=== PATIENT | female | born 1950 | race Caucasian/White ===

== ENCOUNTER 2016-08-26 11:23 | Day surgery (SDC) | payer MEDICARE, OTHER ==
[~2016-08-26] VITALS: Ht 160 cm; Wt 74.9 kg
[2016-08-26 13:03] VITALS: Ht 160 cm; Wt 74.9 kg
[2016-08-26 13:07] VITALS: BP 122/60; PULSE 69; RESP 18
[2016-08-26] MEDS ORDERED: PROPOFOL 40 ML ONE (13:07)
[2016-08-26] MEDS ORDERED: LIDOCAINE 2% (SDV) 5 ML INJ ONE (13:10)
[2016-08-26] MEDS ORDERED: LEVOTHYROXINE (13:13)
[2016-08-26] MEDS ORDERED: LISINOPRIL (13:13)
[2016-08-26] MEDS ORDERED: METFORMIN (13:13)
[2016-08-26] MEDS ORDERED: NAPROXEN (13:13)
[2016-08-26 14:15] VITALS: BP 115/64; PULSE 68; RESP 22
--- NOTE | 2016-08-26 15:54 | GILP ---
DATE OF PROCEDURE: 08/26/2016 NAME OF PROCEDURES: 1. Esophagogastroduodenoscopy and biopsy. 2. Tattooing with Trudy ink. INDICATION FOR THE PROCEDURE: Mr. Solitario Zavaleta is a 66-year-old female patient who was note d to have a mass on the greater curvature of the stomach on abdominal CT scan. The patient was sche duled for endoscopy and possible biopsy. The procedure and possible complications are well explained to the patient and the patient understoo d and consented to the procedure. DESCRIPTION OF PROCEDURE: Under the influence of anesthesia, the gastroscope was carefully introduc ed into the esophagus and under direct vision, it was advanced to the stomach and through the pyloru s into the duodenal bulb and descending duodenum. FINDINGS: ESOPHAGUS: The mucosa was normal. STOMACH: The patient had a submucosal mass on the greater curvature and biopsies were taken for his topathology. The area was tattooed with Trudy ink. The patient was noted to have gastritis and gas tric mucosal biopsies were taken for H. pylori test. Duodenum was normal. The patient tolerated the procedure very well and there was no complication from the procedure. At the end of the procedure, she was awake with stable vital signs and she was discharged home to the [facility] of her family. IMPRESSION: 1. Hiatal hernia. 2. Gastroesophageal reflux disease. 3. Gastritis. 4. Gastric mucosal biopsies were taken for H. pylori test. 5. Submucosal mass on the greater curvature and biopsies were taken for histopathology. The area w as tattooed with Trudy ink. PLAN: 1. Omeprazole 40 mg p.o. q.a.m. 2. Await histopathology reports. 3. The patient may need endoscopic ultrasound for further evaluation. Dictated By: BRIANDA BOX/CRAL Conf#: [id number] DID#: [id number]
--- NOTE | 2016-08-26 19:21 | CONS ---
DATE OF ADMISSION: 08/26/2016 DATE OF CONSULTATION: TYPE OF CONSULTATION: Preoperative gastroenterology. Dear Dr. Rodriguez: I thank you very much for this kind referral. HISTORY OF PRESENT ILLNESS: Ms. Mary Garcia is a 66-year-old female patient who has been referred to me for further evaluation of a gastric mass, which was found on abdominal CT scan. The patient had a soft tissue mass extending from the greater curvature of the distal body of the stomac h. The patient denies any history of abdominal pain. There is no past history of peptic ulcer dise ase. She has been taking naproxen for arthritis. There is no history of gallstones. She does not have any fever, chills, or jaundice. There is no history of liver disease. The patient denies any change in the bowel habit or rectal bleeding. The patient states she had a colonoscopy 1 year ago a nd she was noted to have diverticulosis of the colon. No colon neoplasm was identified. She is hyp ertensive. She has diabetes. There is no history of heart disease or lung problem. There is no hi story of kidney disease. She has hypothyroidism. She is status post appendectomy. SOCIAL HISTORY: She is a nonsmoker. She does not abuse alcohol. FAMILY HISTORY: Negative for gastrointestinal tract neoplasm. ALLERGIES: SHE STATES SHE IS ALLERGIC TO TRAZODONE. MEDICATIONS: 1. Lisinopril. 2. Metformin. 3. Levothyroxine. 4. Naproxen. PHYSICAL EXAMINATION VITAL SIGNS: She is 5 feet 3 inches tall and she weighs 168 pounds. BMI 30. HEART: She has normal heart sounds. LUNGS: Clear. ABDOMEN: Soft without any distention. Liver and spleen are not palpable. There are no masses. Th ere is no focal tenderness. Normal bowel sounds are heard. CENTRAL NERVOUS SYSTEM: Does not reveal any focal neurological deficit. IMPRESSION: 1. Gastric mass on the greater curvature of the distal stomach on abdominal CT scan. 2. The patient had diverticulosis of the colon on colonoscopy done 1 year ago. 3. Hypertension. 4. Diabetes mellitus. 5. Hypothyroidism. 6. Arthritis. 7. Status post appendectomy. 8. Elevated body mass index. 9. HISTORY OF ALLERGY TO TRAZODONE. PLAN: 1. Upper endoscopy for further evaluation. 2. If upper endoscopy does not reveal any mass, patient will need endoscopic ultrasound and possibl e biopsy. The procedure and possible complications are well explained to the patient. She understands and con sents to the procedure. I thank you once again. With warmest personal regards, Dictated By: BRIANDA BOX/NTS Conf#: [id number] DID#: [id number] CC: BRIANDA GUTIERREZ MD;*EndCC*
== END 2016-08-26 15:45 | disposition home or self-care (01) ==
LOC: GIL 11:23
PROVIDERS: ATTEND Internal Medicine Gastroenterology
DX: K29.30 Chronic superficial gastritis without bleeding (principal); K44.9 Diaphragmatic hernia without obstruction or gangrene; K21.9 Gastro-esophageal reflux disease without esophagitis; I10 Essential (primary) hypertension; E11.9 Type 2 diabetes mellitus without complications; E78.5 Hyperlipidemia, unspecified
CPT/HCPCS: 82962; 87081; 88305; 88312

== ENCOUNTER 2017-01-17 08:50 | Inpatient (IN) | payer MEDICARE, OTHER ==
[2017-01-17] VITALS (24 sets, daily range): BP systolic 92–148; BP diastolic 52–77; PULSE 63–87; RESP 12–23; Ht 157.5 cm; Wt 80.0 kg
[~2017-01-17] VITALS: Ht 157.5 cm; Wt 80.0 kg
[~2017-01-17 08:50] MED LIST: AMPICILLIN/SULB 3 GM/NS (PMX) 100 ML IVPB SCH; LEVOTHYROXINE; LISINOPRIL; METFORMIN; NAPROXEN; SOD CHLORIDE 0.9% 1,000 ML IV SCH
[2017-01-17] MEDS ORDERED: LORA10TA3 PO (09:55)
[2017-01-17] MEDS ORDERED: OMEP20CA16 PO (09:56)
[2017-01-17] MEDS ORDERED: GLIP2.5T3 PO (09:56)
[2017-01-17] MEDS ORDERED: LEVO100T87 PO (09:56)
[2017-01-17] MEDS ORDERED: METF1000 PO (09:57)
[2017-01-17] MEDS ORDERED: LISI10TA2 PO (09:58)
[2017-01-17] MEDS ORDERED: ICOS1CAP PO (09:59)
[2017-01-17] MEDS ORDERED: NITR50CA38 PO (10:00)
[2017-01-17 10:31] LABS: ADD SCAN DIFF NO
[2017-01-17 10:34] LABS: BASOPHILS % 0.9 % (0.0-2.0); EOSINOPHILS # 0.1 10^3/ul (0.0-0.5); EOSINOPHILS % 2.8 % (0.0-7.0); LYMPHOCYTES # 1.7 10^3/ul (0.8-2.9); LYMPHOCYTES % 40.2 % (15.0-51.0); MEAN CORPUSCULAR HEMOGLOBIN 25.6 pg (29.0-33.0); MEAN CORPUSCULAR HGB CONC 31.3 g/dl (32.0-37.0); MEAN CORPUSCULAR VOLUME 81.8 fl (82.0-101.0); MEAN PLATELET VOLUME 9.9 fl (7.4-10.4); MONOCYTE # 0.4 10^3/ul (0.3-0.9); MONOCYTES % 8.3 % (0.0-11.0); NEUTROPHILS % 47.3 % (39.0-77.0); PLATELET COUNT 291 10^3/UL (140-415); RED BLOOD COUNT 3.91 10^6/ul (4.20-5.40); RED CELL DISTRIBUTION WIDTH 17.1 % (11.5-14.5); WHITE BLOOD COUNT 4.2 10^3/ul (4.8-10.8)
--- NOTE | 2017-01-17 10:39 | RADRPT ---
PROCEDURE: XR Chest 1 View. CLINICAL INDICATION: Abnormal breath sounds, preop. TECHNIQUE: AP view of the chest was obtained. COMPARISON: None. FINDINGS: The heart size is within normal limits. Calcified atherosclerosis is noted in the aorta. Mild eleva tion of the right hemidiaphragm is observed. Subsegmental atelectasis is noted in the left lower lo be. No consolidations are identified. No pneumothorax is seen. Osseous structures are intact. IMPRESSION: Calcified atherosclerosis in the aorta. Subsegmental atelectasis in the left lower lobe. Mild elevation of the right hemidiaphragm. RPTAT: AA .Dino Parra MD, Date Time Electronically viewed and signed by .Dino Parra MD, MD on 01/17/2017 10:38 .P/
[2017-01-17 10:56] LABS: INR 0.94; PARTIAL THROMBOPLASTIN TIME 25.3 Sec (25.0-35.0); PROTIME 12.6 Sec (12.2-14.2)
[2017-01-17 10:58] LABS: ALBUMIN 4.8 g/dl (3.3-4.9); ALBUMIN/GLOBULIN RATIO 1.6; BILIRUBIN,INDIRECT 0.3 mg/dl (0-1.1); BILIRUBIN,TOTAL 0.3 mg/dl (0.2-1.3); TOTAL PROTEIN 7.8 g/dl (6.1-8.1)
[2017-01-17 11:01] LABS: CALCIUM 9.4 mg/dl (8.4-10.2); CREATININE 0.45 mg/dl (0.44-1.00)
[2017-01-17] MEDS ORDERED: PROPOFOL 20 ML ONE (11:49)
[2017-01-17] MEDS ORDERED: FENTAnyl 50 MCG/ML VIAL ONE (11:49)
[2017-01-17] MEDS ORDERED: ROCURONIUM 50 MG INJ ONE (11:49)
[2017-01-17] MEDS ORDERED: MIDAZOLAM 1 MG/ML 2 ML INJ ONE (11:49)
[2017-01-17] MEDS ORDERED: ROPIVACAINE 0.5 % 30 ML VIAL ONE (11:50)
[2017-01-17] MEDS ORDERED: morphine SULFATE/PF (10 MG/10 ML) INJ ONE (12:36)
[2017-01-17] MEDS ORDERED: CEFAZOLIN 1 GM INJ ONE (12:41)
[2017-01-17] MEDS ORDERED: PHENYLephrine (100 MCG/ML) 5ML SYG ONE (12:41)
[2017-01-17] MEDS ORDERED: PIPER-TAZO 3.375 GM IV (PMX) 100 ML ONE (12:50)
[2017-01-17] MEDS ORDERED: FENTAnyl 2MCG/ML-ROPIV 0.2% 100 ML ONE (13:13)
[2017-01-17] MEDS ORDERED: METOCLOPRAMIDE 10 MG INJ ONE (13:14)
[2017-01-17] MEDS ORDERED: DEXAMETHASONE 4 MG/ML 1 ML INJ ONE (13:14)
[2017-01-17] MEDS ORDERED: FAMOTIDINE 20 MG INJ ONE (13:14)
[2017-01-17] MEDS ORDERED: ONDANSETRON 4 MG INJ ONE (13:14)
[2017-01-17] MEDS ORDERED: ONDANSETRON 4 MG INJ IV PRN (13:30)
[2017-01-17] MEDS ORDERED: HYDROmorphONE (0.2 MG/ML) 10ML SYG IV PRN ×2 (13:30)
[2017-01-17] MEDS ORDERED: ALBUMIN HUMAN 5% 250 ML IV PRN (13:30)
[2017-01-17] MEDS ORDERED: DIPHENHYDRAMINE 50 MG INJ IV PRN ×2 (13:30)
[2017-01-17] MEDS ORDERED: MEPERIDINE 25 MG INJ IV PRN (13:30)
[2017-01-17] MEDS ORDERED: NALBUPHINE HCL (10 MG/1 ML) INJ IV PRN (13:30)
[2017-01-17] MEDS ORDERED: LABETALOL HCL 20MG INJ IV PRN (13:30)
[2017-01-17] MEDS ORDERED: NALOXONE (0.4 MG/ML) INJ IV PRN (13:30)
[2017-01-17] MEDS ORDERED: EPHEDrine SULFATE 50 MG/5 ML SYG IV PRN (13:30)
[2017-01-17] MEDS ORDERED: METOCLOPRAMIDE 10 MG INJ IV PRN (13:30)
[2017-01-17] MEDS ORDERED: hydrALAzine 20 MG INJ IV PRN (13:30)
[2017-01-17] MEDS ORDERED: morphine (1 MG/ML) 10ML SYRINGE IV PRN ×3 (13:30)
[2017-01-17] MEDS ORDERED: GLYCOPYRROLATE 0.4 MG INJ ONE (13:32)
[2017-01-17] MEDS ORDERED: NEOSTIGMINE 3 MG/3 ML SYRINGE ONE (13:32)
--- NOTE | 2017-01-17 15:05 | OPR ---
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 POSTOPERATIVE DIAGNOSIS: Gastrointestinal stromal tumor arising from the greater curvature of the s tomach. OPERATION PERFORMED: Partial gastrectomy. ANESTHESIA: General. ANESTHESIOLOGIST: ____ SURGEON: Jeison Patricia MD STATISTICAL MACHINE SERVICER: Lázaro Moffett MD INDICATIONS FOR PROCEDURE: The patient is a 66-year-old female who was evaluated for abdominal pain , eventual diagnosis of gastric mass was made, endoscopic ultrasound was performed and utilized to o btain a fine-needle aspiration biopsy which was consistent with gastrointestinal stromal tumor. The patient was referred for surgical consultation and counseled as to the risks versus benefits of res ection with partial gastrectomy. She consented and was scheduled for surgery. DESCRIPTION OF PROCEDURE: The patient was brought to the operating theater, placed under general en dotracheal tube anesthesia. The abdomen was prepped and draped in the usual sterile fashion. An up per midline incision was made with a 15-blade scalpel from the xiphoid down to the umbilicus. Subcu taneous tissue was dissected with cautery down to the anterior rectus sheaths. The linea alba was i ncised, and the abdomen was entered without difficulty. The fascial incision was then incised throu gh the length of the skin incision. Exposure was obtained with retractors. The greater curvature o f the stomach was identified. The avascular plane between the greater omentum and transverse mesent sanaz was then entered, and portions of the omentum in the region of the palpable mass were transected with the LigaSure device. The greater curvature of the stomach was then elevated. The mass was id entified. Two Chaka clamps were placed on either side of the mass, and the CHESTER-75 stapler with gr een el was used to transect the region of the stomach where the mass was arising. The specimen was removed, oriented, and evaluated by attending pathologist, Dr. Bales who stated the margins ap peared to be grossly clear. The specimen was then sent for permanent pathologic analysis. The stap le line was inspected. Minimal residual bleeding was controlled with cautery, and portions of the o mentum were then tacked over the staple line and held in place with 3-0 silk pop off sutures. At th is point, the NG tube was palpated and found to be in good position. The lap, sponge and instrument count was correct, and the incision was then closed with #1 looped PDS sutures in running fashion. Subcutaneous tissue was irrigated with Betadine, and the skin was reapproximated with skin el. The patient tolerated the procedure well. The estimated blood loss was 40 mL. There were no comp lications, and the patient was transported in stable condition to the recovery room. Dictated By: JEISON AGUILAR/CARL Conf#: [id number] DID#: [id number]
[2017-01-17] MEDS: FENTAnyl 2MCG/ML-ROPIV 0.2% 100 ML BAG EPI SCH (15:32)
[2017-01-17] MEDS ORDERED: INSULIN ASPART [NOVOLOG] 3 ML PEN SC SCH (17:00)
[2017-01-17] MEDS ORDERED: GLUCOSE GEL 15 GRAM TUBE BUCCAL PRN (17:00)
[2017-01-17] MEDS ORDERED: GLUCOSE GEL 15 GRAM TUBE PO PRN ×2 (17:00)
[2017-01-17] MEDS ORDERED: DEXTROSE 50% 50 ML SYRINGE IV PRN ×2 (17:00)
[2017-01-17] MEDS ORDERED: GLUCAGON 1 MG INJ IM PRN (17:00)
[2017-01-17] MEDS: D5W-0.45 NACL + KCL 20 MEQ 1,000 ML IV SCH ×2 (17:31→20:14)
--- NOTE | 2017-01-17 17:58 | HP ---
DATE OF ADMISSION: 01/17/2017 HISTORY OF PRESENT ILLNESS: The patient is a 66-year-old female who was undergoing evaluation of ab dominal pain and was diagnosed with gastric mass. Subsequently, the patient had undergo fine needle aspiration biopsy which came back positive for gastrointestinal stromal tumor. The patient was suri luated by Dr. Patricia in general surgery consultation and was brought to the hospital and underwent pa rtial gastrectomy. Postoperative, the patient experienced moderate pain and was [facility] and management. PAST MEDICAL HISTORY: Positive for hypertension, diabetes, and hypothyroidism. PAST SURGICAL HISTORY: Patient is status post appendectomy many years ago. FAMILY HISTORY: Noncontributory. SOCIAL HISTORY: Patient lives at home. The patient denies any tobacco use, denies any alcohol use, denies any illicit drug use. ALLERGIES: PATIENT IS ALLERGIC TO TRAZODONE. HOME MEDICATIONS: Include: 1. Glipizide. 2. Levothyroxine. 3. Lisinopril. 4. Loratadine. 5. Metformin. 6. Nitrofurantoin. 7. Vascepa. 8. Omeprazole. REVIEW OF SYSTEMS: A 12-point review of systems is negative, unless what mentioned in the HPI. PHYSICAL ASSESSMENT: GENERAL: Well-developed, obese female, currently lethargic, but easily arousable. VITAL SIGNS: Temperature is 98.3, pulse is 63, blood pressure 119/64, respiratory rate 14, oxygen s aturation 96% on 2 liters nasal cannula. HEENT: Head is atraumatic, normocephalic. Pupils equal, round, react to light and accommodation. Oral mucosa is pink and moist. The patient has an NG tube with serosanguineous drainage. NECK: Supple. No cervical lymphadenopathy. No thyromegaly. CHEST: Lungs clear bilaterally. There are no rhonchi, wheezes, rales noted. CARDIOVASCULAR: Normal S1, S2. No murmurs, gallops, clicks, rubs noted. ABDOMEN: Status post surgery with midline surgical incision with intact dressing. EXTREMITIES: No edema, clubbing, or cyanosis. SKIN: There is no rash or petechiae noted. NEUROLOGIC: Patient is lethargic, but easily arousable. When awakened, patient is alert x3. No fo claudia deficits noted. Motor strength 5/5 in all extremities. LABORATORY DATA: On admission, CBC: White blood cells 4.2, hemoglobin 10.0, hematocrit 32.0, plate lets 291. Chemistry: Sodium is 140, potassium 4.0, chloride 103, carbon dioxide 28, anion gap 13, BUN is 26, creatinine 0.45, glucose 160, AST is 136, ALT is 202, alkaline phosphatase is 82. PT is 12.6, INR 0.924, APTT is 25.3. IMAGING: Chest x-ray with calcified atherosclerosis in the aorta, subsegmental atelectasis in left lower lobe, mild elevation of the right hemidiaphragm. ASSESSMENT AND PLAN: 1. 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 I will continue IV fluids. Continue n.p.o. NG tube to low intermittent wall silva ctioning. Continue antibiotics and Dilaudid p.r.n. for pain and Zofran p.r.n. for nausea. 2. Hypothyroidism. Will continue Synthroid, convert to IV dose. 3. Diabetes mellitus type 2. Will continue Accu-Cheks every 4 hours with NovoLog sliding scale cov erage. 4. Hypertension. We will continue to monitor blood pressure. Hydralazine p.r.n. for hypertension. Sequential compression devices for deep venous thrombosis prophylaxis. Further recommendations ba sed on clinical course. Plan of care discussed with Dr. Gomez. Dictated By: GIANNI HAMMER DIRECTOR STYLE for FIDEL GOMEZ MD SR/NTS Conf#: [id number] DID#: [id number]
[2017-01-17] MEDS: Insulin NOVOLOG SS MILD Algorithm (NPO/TPN/ENTERAL FEEDS) SC SCH ×2 (18:32→21:07)
[2017-01-18] MEDS: D5W-0.45 NACL + KCL 20 MEQ 1,000 ML IV SCH ×4 (00:28→21:41)
[2017-01-18 00:37] VITALS: BP 138/80; RESP 20
[2017-01-18] MEDS: Insulin NOVOLOG SS MILD Algorithm (NPO/TPN/ENTERAL FEEDS) SC SCH ×6 (00:40→22:01)
[2017-01-18] MEDS: FENTAnyl 2MCG/ML-ROPIV 0.2% 100 ML BAG EPI SCH (03:51)
[2017-01-18 04:00] VITALS: BP 130/60; PULSE 96; RESP 20
[2017-01-18] MEDS: PANTOPRAZOLE 40 MG INJ IV SCH (06:18)
[2017-01-18] MEDS: LEVOTHYROXINE 100 MCG VIAL IV SCH (06:19)
[2017-01-18 08:46] VITALS: BP 114/57; RESP 20
[2017-01-18 11:30] LABS: ADD SCAN DIFF NO
[2017-01-18 11:40] LABS: BASOPHILS % 0.3 % (0.0-2.0); HEMATOCRIT 26.7 % (37.0-47.0); HEMOGLOBIN 8.3 g/dl (12.0-16.0); LYMPHOCYTES # 1.9 10^3/ul (0.8-2.9); LYMPHOCYTES % 29.5 % (15.0-51.0); MEAN CORPUSCULAR HEMOGLOBIN 25.7 pg (29.0-33.0); MEAN CORPUSCULAR HGB CONC 31.1 g/dl (32.0-37.0); MEAN CORPUSCULAR VOLUME 82.7 fl (82.0-101.0); MEAN PLATELET VOLUME 9.7 fl (7.4-10.4); MONOCYTE # 0.5 10^3/ul (0.3-0.9); MONOCYTES % 7.5 % (0.0-11.0); NEUTROPHIL # 3.9 10^3/ul (1.6-7.5); NEUTROPHILS % 62.4 % (39.0-77.0); PLATELET COUNT 234 10^3/UL (140-415); RED BLOOD COUNT 3.23 10^6/ul (4.20-5.40); RED CELL DISTRIBUTION WIDTH 17.4 % (11.5-14.5); WHITE BLOOD COUNT 6.3 10^3/ul (4.8-10.8)
[2017-01-18 11:55] LABS: INR 1.11; PROTIME 14.3 Sec (12.2-14.2); PT RATIO 1.1
[2017-01-18 11:56] LABS: CREATININE 0.41 mg/dl (0.44-1.00); PARTIAL THROMBOPLASTIN TIME 26.2 Sec (25.0-35.0); POTASSIUM 3.8 mmol/L (3.5-5.1)
--- NOTE | 2017-01-18 15:59 | CONS ---
Date/Time of Note Date/Time of Note DATE: 01/18/17 TIME: 15:52 Consultation Date/Type/Reason Admit Date/Time Jan 17, 2017 at 09:15 Initial Consult Date 01/17/17 Type of Consultation: Anesthesia Reason for Consultation Subtotal Gastrectomy 24 HR Interval Summary Free Text/Dictation POD#! 66 yr old female, was scheduled for Subtotal Gastrectomy due to Gastric Cancer. She went under combined GETA-Thoracic Epidural Anesthesia for the surgery, surgery went uneventful, patient is doing well post-op, she is been complaining from soar throat due to the NG tube placement. Otherwise her pain is well controlled, she complains of mild surgical incision pain. no nausea or vomiting noted. Vital signs were stable afebrile, she is alert and oriented, able to move all extremities no paresthesia or weakness reported. Thoracic catheter site is clean and intact and epidural infusion is 6cc/h. Plan: Increased the Epidural infusion to 7cc/h and will follow up. Constitutional: no complaints Detailed Summary ENT: bleeding, congestion, discharge, dysphagia, no complaints, other, pain, sore throat Respiratory: no complaints Cardiovascular: no complaints Gastrointestinal: no complaints Genitourinary: no complaints Musculoskeletal: no complaints Skin: no complaints Neurologic: no complaints Endocrine: no complaints Lymphatic: no complaints Psychological: no complaints Immunologic: immunodeficiency Exam/Review of Systems Vital Signs Vitals Vital Signs Date Time Temp Pulse Resp B/P Pulse Ox O2 Delivery O2 Flow Rate FiO2 01/18/17 08:46 98.9 88 20 114/57 100 01/18/17 08:00 Nasal Cannula 3.0 Intake and Output 01/17/17 01/17/17 01/18/17 14:59 22:59 06:59 Intake Total 1500 ml 150 ml 1600 ml Output Total 350 ml 380 ml 1210 ml Balance 1150 ml -230 ml 390 ml Results Result Diagram: 01/18/17 1111 01/18/17 1111 Results 24 hrs Laboratory Tests Test 01/17/17 17:32 01/17/17 20:57 01/18/17 00:30 01/18/17 04:56 Bedside Glucose 208 267 H 257 H 233 H Test 01/18/17 09:06 01/18/17 11:11 01/18/17 13:03 Bedside Glucose 209 188 White Blood Count 6.3 # Red Blood Count 3.23 L Hemoglobin 8.3 L Hematocrit 26.7 L Mean Corpuscular Volume 82.7 Mean Corpuscular Hemoglobin 25.7 L Mean Corpuscular Hemoglobin Concent 31.1 L Red Cell Distribution Width 17.4 H Platelet Count 234 Mean Platelet Volume 9.7 Neutrophils % 62.4 Lymphocytes % 29.5 Monocytes % 7.5 Eosinophils % 0.0 Basophils % 0.3 Nucleated Red Blood Cells % 0.0 Neutrophils # 3.9 Lymphocytes # 1.9 Monocytes # 0.5 Eosinophils # 0.0 Basophils # 0.0 Nucleated Red Blood Cells # 0.0 Prothrombin Time 14.3 H Prothrombin Time Ratio 1.1 INR International Normalized Ratio 1.11 Activated Partial Thromboplast Time 26.2 Sodium Level 140 Potassium Level 3.8 Chloride Level 106 Carbon Dioxide Level 26 Anion Gap 12 Blood Urea Nitrogen 13 # Creatinine 0.41 L Glucose Level 167 Calcium Level 8.0 L Medications Medications Current Medications Diphenhydramine HCl (Benadryl) 25 mg Q4H PRN IV PRURITUS; Start 01/17/17 at 13: 30 Nalbuphine HCl (Nubain) 10 mg Q4H PRN IV PRURITUS; Start 01/17/17 at 13:30 Naloxone HCl (Narcan) 0.2 mg Q2M PRN IV FOR RESP RATE 8 OR LESS; Start at 13:30 Pantoprazole 40 mg 40 mg DAILY@06 IV Last administered on 01/18/17 06:18; Admin Dose 40 MG; Start 01/18/17 at 06:00 Potassium Chloride/Dextrose/ Sod Cl (D5-1/2ns + KCl 20 Meq) 1,000 ml @ 150 mls/ hr Q6H40M IV Last administered on 01/18/17 14:07; Admin Dose 150 MLS/HR; Start 01/17/17 at 13:34 Levothyroxine Sodium (Synthroid Iv) 50 mcg DAILY@06 IV Last administered on 06:19; Admin Dose 50 MCG; Start 01/18/17 at 06:00 Hydralazine HCl (Apresoline) 10 mg Q6H PRN IV SBP>170; Start 01/17/17 at 17:00 Insulin Aspart (Novolog Insulin Pen) (Adult SC Insulin - Mild Algorithm)... Q4 SC Last administered on 6/20/17at 13:23; Admin Dose 2 UNIT; Start 01/17/17 at 17:30 Miscellaneous Information 1 ea NOTE XX ; Start 01/17/17 at 17:00 Glucose (Glutose) 15 gm Q15M PRN PO DECREASED GLUCOSE; Start 01/17/17 at 17:00 Glucose (Glutose) 22.5 gm Q15M PRN PO DECREASED GLUCOSE; Start 01/17/17 at 17: 00 Dextrose (D50w Syringe) 25 ml Q15M PRN IV DECREASED GLUCOSE; Start 01/17/17 at 17:00 Dextrose (D50w Syringe) 50 ml Q15M PRN IV DECREASED GLUCOSE; Start 01/17/17 at 17:00 Glucagon (Glucagen) 1 mg Q15M PRN IM DECREASED GLUCOSE; Start 01/17/17 at 17:00 Glucose (Glutose) 15 gm Q15M PRN BUCCAL DECREASED GLUCOSE; Start 01/17/17 at 17 :00 JAKE HOLMAN MD Jan 18, 2017 15:59
[2017-01-18] MEDS ORDERED: ACETAMINOPHEN 1000MG/100ML IV 100 ML IVPB STA (17:05)
--- NOTE | 2017-01-18 17:13 | PN ---
Date/Time of Note Date/Time of Note DATE: 01/18/17 TIME: 17:09 Assessment/Plan VTE Prophylaxis VTE Prophylaxis Intervention: SCD's Lines/Catheters IV Catheter Type (from Nrs): Peripheral IV Urinary Cath still in place: Yes Reason Cath still needed: urinary retention Assessment/Plan Assessment/Plan Patient's complains of chills and fever, obtain chest x-ray and urine and blood cultures start patient on empiric Zosyn. Encourage use of incentive spirometer. ASSESSMENT AND PLAN: 1. 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 Continue IV fluids while patient is n.p.o. NG tube to low intermittent wall suctioning. Continue antibiotics and Dilaudid p.r.n. for pain and Zofran p.r.n. for nausea. 2. Hypothyroidism. Continue IV Synthroid. 3. Diabetes mellitus type 2. Continue Accu-Cheks every 4 hours with NovoLog sliding scale coverage. 4. Hypertension. Continue to monitor blood pressure. Hydralazine p.r.n. for hypertension. Sequential compression devices for deep venous thrombosis prophylaxis. Further recommendations based on clinical course. Plan of care discussed with Dr. Fonseca. Exam/Review of Systems Vital Signs Vitals Vital Signs Date Time Temp Pulse Resp B/P Pulse Ox O2 Delivery O2 Flow Rate FiO2 01/18/17 08:46 98.9 88 20 114/57 100 01/18/17 08:00 Nasal Cannula 3.0 Intake and Output 01/17/17 01/17/17 01/18/17 15:00 23:00 07:00 Intake Total 1500 ml 150 ml 1600 ml Output Total 350 ml 380 ml 1210 ml Balance 1150 ml -230 ml 390 ml Exam Constitutional: alert Head: normocephalic Neck: supple Respiratory: clear to auscultation Cardiovascular: nl pulses Gastrointestinal: other (Status post surgery), soft Extremities: normal pulses Neurological: nl mental status Results Result Diagram: 01/18/17 1111 01/18/17 1111 Results 24 hrs Laboratory Tests Test 01/17/17 17:32 01/17/17 20:57 01/18/17 00:30 01/18/17 04:56 Bedside Glucose 208 267 H 257 H 233 H Test 01/18/17 09:06 01/18/17 11:11 01/18/17 13:03 Bedside Glucose 209 188 White Blood Count 6.3 # Red Blood Count 3.23 L Hemoglobin 8.3 L Hematocrit 26.7 L Mean Corpuscular Volume 82.7 Mean Corpuscular Hemoglobin 25.7 L Mean Corpuscular Hemoglobin Concent 31.1 L Red Cell Distribution Width 17.4 H Platelet Count 234 Mean Platelet Volume 9.7 Neutrophils % 62.4 Lymphocytes % 29.5 Monocytes % 7.5 Eosinophils % 0.0 Basophils % 0.3 Nucleated Red Blood Cells % 0.0 Neutrophils # 3.9 Lymphocytes # 1.9 Monocytes # 0.5 Eosinophils # 0.0 Basophils # 0.0 Nucleated Red Blood Cells # 0.0 Prothrombin Time 14.3 H Prothrombin Time Ratio 1.1 INR International Normalized Ratio 1.11 Activated Partial Thromboplast Time 26.2 Sodium Level 140 Potassium Level 3.8 Chloride Level 106 Carbon Dioxide Level 26 Anion Gap 12 Blood Urea Nitrogen 13 # Creatinine 0.41 L Glucose Level 167 Calcium Level 8.0 L Medications Medications Current Medications Diphenhydramine HCl (Benadryl) 25 mg Q4H PRN IV PRURITUS; Start 01/17/17 at 13: 30 Nalbuphine HCl (Nubain) 10 mg Q4H PRN IV PRURITUS; Start 01/17/17 at 13:30 Naloxone HCl (Narcan) 0.2 mg Q2M PRN IV FOR RESP RATE 8 OR LESS; Start at 13:30 Pantoprazole 40 mg 40 mg DAILY@06 IV Last administered on 01/18/17 06:18; Admin Dose 40 MG; Start 01/18/17 at 06:00 Potassium Chloride/Dextrose/ Sod Cl (D5-1/2ns + KCl 20 Meq) 1,000 ml @ 150 mls/ hr Q6H40M IV Last administered on 01/18/17 14:07; Admin Dose 150 MLS/HR; Start 01/17/17 at 13:34 Levothyroxine Sodium (Synthroid Iv) 50 mcg DAILY@06 IV Last administered on 06:19; Admin Dose 50 MCG; Start 01/18/17 at 06:00 Hydralazine HCl (Apresoline) 10 mg Q6H PRN IV SBP>170; Start 01/17/17 at 17:00 Insulin Aspart (Novolog Insulin Pen) (Adult SC Insulin - Mild Algorithm)... Q4 SC Last administered on 01/18/17t 13:23; Admin Dose 2 UNIT; Start 01/17/17 at 17:30 Miscellaneous Information 1 ea NOTE XX ; Start 01/17/17 at 17:00 Glucose (Glutose) 15 gm Q15M PRN PO DECREASED GLUCOSE; Start 01/17/17 at 17:00 Glucose (Glutose) 22.5 gm Q15M PRN PO DECREASED GLUCOSE; Start 01/17/17 at 17: 00 Dextrose (D50w Syringe) 25 ml Q15M PRN IV DECREASED GLUCOSE; Start 01/17/17 at 17:00 Dextrose (D50w Syringe) 50 ml Q15M PRN IV DECREASED GLUCOSE; Start 01/17/17 at 17:00 Glucagon (Glucagen) 1 mg Q15M PRN IM DECREASED GLUCOSE; Start 01/17/17 at 17:00 Glucose (Glutose) 15 gm Q15M PRN BUCCAL DECREASED GLUCOSE; Start 01/17/17 at 17 :00 GIANNI HAMMER Jan 18, 2017 17:13
[2017-01-18] MEDS ORDERED: CEPASTAT LOZENGE MT PRN (18:00)
--- NOTE | 2017-01-18 18:09 | PN ---
DATE: 01/18/2017 Postop day #1 status post laparotomy and partial gastrectomy. SUBJECTIVE: The patient states that she is feeling thirsty, otherwise no complaint. OBJECTIVE: VITAL SIGNS: Temperature 98.9, heart rate 96 and 88, respiratory rate 20, blood pressure 114/57, sa turation 100% on 2 liters nasal cannula. Respiratory ____ little bit poor, encouraged to have incen tive spirometry. ABDOMEN: Soft. Dressing is intact. EXTREMITIES: Legs no calf tenderness. LABORATORY DATA: WBC today is 6300, hemoglobin slightly dropped from 10 to 8.3, hematocrit 26.7. C hemistry: Sodium, potassium normal. BUN 13, creatinine 0.41. Calcium 8. Blood sugar 188. ASSESSMENT: Status post partial gastrectomy, postop day #1. The patient overall is stable. Urine output is adequate. PLAN: Encouraged to use incentive spirometry more frequently. The patient also is receiving thorac ic epidural for pain management. We will follow. Dictated By: PERLITA VARNER/CARL Conf#: [id number] DID#: [id number]
[2017-01-18] MEDS: PIPER-TAZO 3.375 GM IV (PMX) 100 ML IVPB SCH ×2 (19:02→21:58)
[2017-01-18 19:40] VITALS: BP 140/74; RESP 21
[2017-01-18] MEDS ORDERED: NALOXONE (0.4 MG/ML) INJ IV PRN (21:00)
--- NOTE | 2017-01-19 00:31 | RADRPT ---
PROCEDURE: XR Chest. CLINICAL INDICATION: Fever. Postop. TECHNIQUE: Single AP portable chest COMPARISON: 01/18/2020 Chest x-ray FINDINGS: The cardiomediastinal silhouette is within normal limits of size. Atherosclerotic calcification of t he aorta. Vascular congestion and bilateral interstitial and alveolar air space opacities suggestive of pneumonia and/or CHF. Small pleural effusion. No pneumothorax. The osseous structures and soft tissues are unremarkable. IMPRESSION: 1. Interstitial and alveolar air space opacities and left pleural effusion with vascular congestion. This may represent CHF and/or multifocal pneumonia . RPTAT:AAJJ Jeannette Bolanos Physician Date Time Electronically viewed and signed by Physician Carmel on 01/19/2017 00:31 FRAN/
[2017-01-19] MEDS: Insulin NOVOLOG SS MILD Algorithm (NPO/TPN/ENTERAL FEEDS) SC SCH ×6 (01:33→21:37)
[2017-01-19] MEDS: ACETAMINOPHEN 650 MG SUPP PR PRN ×3 (02:11→16:49)
--- NOTE | 2017-01-19 05:22 | CONS ---
Date/Time of Note Date/Time of Note DATE: 01/19/17 TIME: 05:19 Consultation Date/Type/Reason Admit Date/Time Jan 17, 2017 at 09:15 Initial Consult Date 01/17/17 Type of Consultation: Anesthesia Reason for Consultation Subtotal Gastrectomy 24 HR Interval Summary Free Text/Dictation POD#2 66 yr old female, was scheduled for Subtotal Gastrectomy due to Gastric Cancer. She went under combined GETA-Thoracic Epidural Anesthesia for the surgery, surgery went uneventful, patient is doing well post-op,Epidural Duramorph was given Her soar throat is improved and is much better today. Otherwise her pain is well controlled, she complains of moderate surgical incision pain that was addressed last night and an epidural bolus of 6cc given and the infusion rate was increased to 8cc/hr. no nausea or vomiting noted. Vital signs were stable afebrile, she is alert and oriented, able to move all extremities no paresthesia or weakness reported. Thoracic catheter site is clean and intact and epidural infusion is 8cc/h. Plan: continue with rate 8cc/hr and morphine 2mg IV Q 2hr PRN for breakthrough pain, will follow up. Exam/Review of Systems Vital Signs Vitals Vital Signs Date Time Temp Pulse Resp B/P Pulse Ox O2 Delivery O2 Flow Rate FiO2 01/18/17 19:40 100.0 101 21 140/74 96 01/18/17 08:00 Nasal Cannula 3.0 Intake and Output 01/18/17 01/18/17 01/19/17 15:00 23:00 07:00 Intake Total 1250 ml 550 ml Output Total 1700 ml Balance 1250 ml -1150 ml Results Result Diagram: 01/18/17 1111 01/18/17 1111 Results 24 hrs Laboratory Tests Test 01/18/17 09:06 01/18/17 11:11 01/18/17 13:03 01/18/17 17:20 Bedside Glucose 209 188 133 White Blood Count 6.3 # Red Blood Count 3.23 L Hemoglobin 8.3 L Hematocrit 26.7 L Mean Corpuscular Volume 82.7 Mean Corpuscular Hemoglobin 25.7 L Mean Corpuscular Hemoglobin Concent 31.1 L Red Cell Distribution Width 17.4 H Platelet Count 234 Mean Platelet Volume 9.7 Neutrophils % 62.4 Lymphocytes % 29.5 Monocytes % 7.5 Eosinophils % 0.0 Basophils % 0.3 Nucleated Red Blood Cells % 0.0 Neutrophils # 3.9 Lymphocytes # 1.9 Monocytes # 0.5 Eosinophils # 0.0 Basophils # 0.0 Nucleated Red Blood Cells # 0.0 Prothrombin Time 14.3 H Prothrombin Time Ratio 1.1 INR International Normalized Ratio 1.11 Activated Partial Thromboplast Time 26.2 Sodium Level 140 Potassium Level 3.8 Chloride Level 106 Carbon Dioxide Level 26 Anion Gap 12 Blood Urea Nitrogen 13 # Creatinine 0.41 L Glucose Level 167 Calcium Level 8.0 L Test 01/18/17 21:47 01/19/17 01:29 Bedside Glucose 190 207 Medications Medications Current Medications Diphenhydramine HCl (Benadryl) 25 mg Q4H PRN IV PRURITUS; Start 01/17/17 at 13: 30 Nalbuphine HCl (Nubain) 10 mg Q4H PRN IV PRURITUS; Start 01/17/17 at 13:30 Pantoprazole 40 mg 40 mg DAILY@06 IV Last administered on 01/18/17 06:18; Admin Dose 40 MG; Start 01/18/17 at 06:00 Potassium Chloride/Dextrose/ Sod Cl (D5-1/2ns + KCl 20 Meq) 1,000 ml @ 150 mls/ hr Q6H40M IV Last administered on 01/18/17 21:41; Admin Dose 150 MLS/HR; Start 01/17/17 at 13:34 Levothyroxine Sodium (Synthroid Iv) 50 mcg DAILY@06 IV Last administered on 06:19; Admin Dose 50 MCG; Start 01/18/17 at 06:00 Hydralazine HCl (Apresoline) 10 mg Q6H PRN IV SBP>170; Start 01/17/17 at 17:00 Insulin Aspart (Novolog Insulin Pen) (Adult SC Insulin - Mild Algorithm)... Q4 SC Last administered on 01/19/17 01:33; Admin Dose 2 UNIT; Start 01/17/17 at 17:30 Miscellaneous Information 1 ea NOTE XX ; Start 01/17/17 at 17:00 Glucose (Glutose) 15 gm Q15M PRN PO DECREASED GLUCOSE; Start 01/17/17 at 17:00 Glucose (Glutose) 22.5 gm Q15M PRN PO DECREASED GLUCOSE; Start 01/17/17 at 17: 00 Dextrose (D50w Syringe) 25 ml Q15M PRN IV DECREASED GLUCOSE; Start 01/17/17 at 17:00 Dextrose (D50w Syringe) 50 ml Q15M PRN IV DECREASED GLUCOSE; Start 01/17/17 at 17:00 Glucagon (Glucagen) 1 mg Q15M PRN IM DECREASED GLUCOSE; Start 01/17/17 at 17:00 Glucose 15 gm 15 gm Q15M PRN BUCCAL DECREASED GLUCOSE; Start 01/17/17 at 17:00 Piperacillin Sod/ Tazobactam Sod (Zosyn 3.375gm/ 100 ml (Pmx)) 100 ml @ 200 mls /hr Q8 IVPB Last administered on 01/18/17 21:58; Admin Dose 200 MLS/HR; Start 01/18/17 at 17:30 Phenol (Cepastat Lozenge) 1 lozenge Q1H PRN [place] PAIN Last administered on 19:02; Admin Dose 1 LOZENGE; Start 01/18/17 at 18:00 Morphine Sulfate (morphine) 2 mg Q2H PRN IV PAIN LEVEL 1-5; Start 01/18/17 at 21:00 Naloxone HCl (Narcan) 0.2 mg Q2M PRN IV FOR RESP RATE 8 OR LESS; Start at 21:00 Acetaminophen (Tylenol Supp) 650 mg Q4H PRN [place] ELEVATED TEMPERATURE Last administered on 01/19/17 02:11; Admin Dose 650 MG; Start 01/19/17 at 02:00 JAKE HOLMAN MD Jan 19, 2017 05:22
[2017-01-19] MEDS: LEVOTHYROXINE 100 MCG VIAL IV SCH (05:33)
[2017-01-19] MEDS: PANTOPRAZOLE 40 MG INJ IV SCH (05:33)
[2017-01-19] MEDS: PIPER-TAZO 3.375 GM IV (PMX) 100 ML IVPB SCH ×3 (05:33→21:35)
[2017-01-19] MEDS: D5W-0.45 NACL + KCL 20 MEQ 1,000 ML IV SCH ×3 (05:33→22:43)
[2017-01-19] MEDS: morphine 2 MG INJ IV PRN ×2 (05:39→19:56)
[2017-01-19] MEDS: FENTAnyl 2MCG/ML-ROPIV 0.2% 100 ML BAG EPI SCH ×2 (06:55→16:35)
[2017-01-19 07:47] VITALS: BP 128/69; RESP 20
[2017-01-19 10:33] LABS: ADD SCAN DIFF NO
[2017-01-19 10:39] LABS: BASOPHILS % 0.4 % (0.0-2.0); EOSINOPHILS % 0.1 % (0.0-7.0); HEMATOCRIT 27.5 % (37.0-47.0); HEMOGLOBIN 8.7 g/dl (12.0-16.0); LYMPHOCYTES # 2.1 10^3/ul (0.8-2.9); LYMPHOCYTES % 29.9 % (15.0-51.0); MEAN CORPUSCULAR HGB CONC 31.6 g/dl (32.0-37.0); MEAN CORPUSCULAR VOLUME 82.1 fl (82.0-101.0); MEAN PLATELET VOLUME 10.1 fl (7.4-10.4); MONOCYTE # 0.5 10^3/ul (0.3-0.9); MONOCYTES % 6.9 % (0.0-11.0); NEUTROPHIL # 4.3 10^3/ul (1.6-7.5); NEUTROPHILS % 62.4 % (39.0-77.0); PLATELET COUNT 250 10^3/UL (140-415); RED BLOOD COUNT 3.35 10^6/ul (4.20-5.40); RED CELL DISTRIBUTION WIDTH 17.5 % (11.5-14.5); WHITE BLOOD COUNT 6.9 10^3/ul (4.8-10.8)
[2017-01-19 11:07] LABS: INR 1.06; PROTIME 13.8 Sec (12.2-14.2); PT RATIO 1.1
[2017-01-19 11:08] LABS: CALCIUM 8.2 mg/dl (8.4-10.2); CREATININE 0.41 mg/dl (0.44-1.00); PARTIAL THROMBOPLASTIN TIME 28.1 Sec (25.0-35.0); POTASSIUM 3.8 mmol/L (3.5-5.1)
--- NOTE | 2017-01-19 13:29 | PN ---
DATE: 01/19/2017 Postop day #2 status post laparotomy, partial gastrectomy. SUBJECTIVE: No special complaint, stated that she is better. OBJECTIVE: VITAL SIGNS: Temperature 98.9 today, apparently per nurses last night it was 102. Heart rate 92 and regular, respirations 20, blood pressure 128/69, saturation 100% on 3 liters nasal cannula. LABORATORY DATA: WBC 6900 with 62% segmented, hemoglobin 8.7, hematocrit 27.5. Chemistry: Sodium, potassium normal, BUN and creatinine normal. Blood sugar 186. Urine culture so far is negative. Chest x-ray was done last night, shows interstitial and alveolar airspace opacities and left pleural effusion with vascular congestion. This may represent congestive heart failure and/or multifocal pneumonia. ABDOMEN: Soft, bowel sounds present. NG tube is in place, is not draining that much. Urine output is adequate. ASSESSMENT AND PLAN: The patient is a 66-year-old with status post laparotomy, partial gastrectomy, postop day #2. She started having high fever yesterday. The chest x-ray shows abnormal chest, possible opacification of interstitial spaces. PLAN: Encourage the patient to use incentive spirometry and take deep breaths and cough every half an hour. Other colleagues will continue to manage the patient in regards to other problems. Hopefully, tomorrow we may be able to get her out of bed because the patient has thoracic epidural. Dictated By: PERLITA VARNER/CARL Conf#: [id number] DID#: [id number] MTDD
--- NOTE | 2017-01-19 14:30 | PN ---
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 Continue IV fluids while patient is n.p.o. NG tube to low intermittent wall suctioning. Continue antibiotics and Dilaudid p.r.n. for pain and Zofran p.r.n. for nausea. - Postoperative fever, continue Zosyn follow-up on urine and blood cultures. Chest x-ray was pleural effusion and vascular congestion. Encourage IS. - Hypothyroidism. Continue IV Synthroid. - Diabetes mellitus type 2. Continue Accu-Cheks every 4 hours with NovoLog sliding scale coverage. - Hypertension. Continue to monitor blood pressure. Hydralazine p.r.n. for hypertension. Sequential compression devices for deep venous thrombosis prophylaxis. Further recommendations based on clinical course. Plan of care discussed with Dr. Fonseca. Problems: Exam/Review of Systems Vital Signs Vitals Vital Signs Date Time Temp Pulse Resp B/P Pulse Ox O2 Delivery O2 Flow Rate FiO2 01/19/17 08:00 Nasal Cannula 3.0 01/19/17 07:47 98.9 92 20 128/69 100 Intake and Output 01/18/17 01/18/17 01/19/17 15:00 23:00 07:00 Intake Total 1250 ml 1330 ml 1020 ml Output Total 1700 ml 1260 ml Balance 1250 ml -370 ml -240 ml Exam Constitutional: alert Head: normocephalic Neck: supple Respiratory: clear to auscultation Cardiovascular: nl pulses Gastrointestinal: other (Status post surgery), soft Extremities: normal pulses Neurological: nl mental status Results Result Diagram: 01/19/17 1018 01/19/17 1018 Results 24 hrs Laboratory Tests Test 01/18/17 17:20 01/18/17 21:47 01/19/17 01:29 01/19/17 05:54 Bedside Glucose 133 190 207 173 Test 01/19/17 09:06 01/19/17 10:18 01/19/17 13:08 Bedside Glucose 172 227 H White Blood Count 6.9 Red Blood Count 3.35 L Hemoglobin 8.7 L Hematocrit 27.5 L Mean Corpuscular Volume 82.1 Mean Corpuscular Hemoglobin 26.0 L Mean Corpuscular Hemoglobin Concent 31.6 L Red Cell Distribution Width 17.5 H Platelet Count 250 Mean Platelet Volume 10.1 Neutrophils % 62.4 Lymphocytes % 29.9 Monocytes % 6.9 Eosinophils % 0.1 Basophils % 0.4 Nucleated Red Blood Cells % 0.0 Neutrophils # 4.3 Lymphocytes # 2.1 Monocytes # 0.5 Eosinophils # 0.0 Basophils # 0.0 Nucleated Red Blood Cells # 0.0 Prothrombin Time 13.8 Prothrombin Time Ratio 1.1 INR International Normalized Ratio 1.06 Activated Partial Thromboplast Time 28.1 Sodium Level 139 Potassium Level 3.8 Chloride Level 107 Carbon Dioxide Level 28 Anion Gap 8 Blood Urea Nitrogen 6 L Creatinine 0.41 L Glucose Level 186 Calcium Level 8.2 L Medications Medications Current Medications Diphenhydramine HCl (Benadryl) 25 mg Q4H PRN IV PRURITUS; Start 01/17/17 at 13: 30 Nalbuphine HCl (Nubain) 10 mg Q4H PRN IV PRURITUS; Start 01/17/17 at 13:30 Pantoprazole 40 mg 40 mg DAILY@06 IV Last administered on 01/19/17 05:33; Admin Dose 40 MG; Start 01/18/17 at 06:00 Potassium Chloride/Dextrose/ Sod Cl (D5-1/2ns + KCl 20 Meq) 1,000 ml @ 150 mls/ hr Q6H40M IV Last administered on 01/19/17 13:03; Admin Dose 150 MLS/HR; Start 01/17/17 at 13:34 Levothyroxine Sodium (Synthroid Iv) 50 mcg DAILY@06 IV Last administered on 05:33; Admin Dose 50 MCG; Start 01/18/17 at 06:00 Hydralazine HCl (Apresoline) 10 mg Q6H PRN IV SBP>170; Start 01/17/17 at 17:00 Insulin Aspart (Novolog Insulin Pen) (Adult SC Insulin - Mild Algorithm)... Q4 SC Last administered on 01/19/17 13:13; Admin Dose 3 UNIT; Start 01/17/17 at 17:30 Miscellaneous Information 1 ea NOTE XX ; Start 01/17/17 at 17:00 Glucose (Glutose) 15 gm Q15M PRN PO DECREASED GLUCOSE; Start 01/17/17 at 17:00 Glucose (Glutose) 22.5 gm Q15M PRN PO DECREASED GLUCOSE; Start 01/17/17 at 17: 00 Dextrose (D50w Syringe) 25 ml Q15M PRN IV DECREASED GLUCOSE; Start 01/17/17 at 17:00 Dextrose (D50w Syringe) 50 ml Q15M PRN IV DECREASED GLUCOSE; Start 01/17/17 at 17:00 Glucagon (Glucagen) 1 mg Q15M PRN IM DECREASED GLUCOSE; Start 01/17/17 at 17:00 Glucose 15 gm 15 gm Q15M PRN BUCCAL DECREASED GLUCOSE; Start 01/17/17 at 17:00 Piperacillin Sod/ Tazobactam Sod (Zosyn 3.375gm/ 100 ml (Pmx)) 100 ml @ 200 mls /hr Q8 IVPB Last administered on 01/19/17 14:04; Admin Dose 200 MLS/HR; Start 01/18/17 at 17:30 Phenol (Cepastat Lozenge) 1 lozenge Q1H PRN [place] PAIN Last administered on 19:02; Admin Dose 1 LOZENGE; Start 01/18/17 at 18:00 Morphine Sulfate (morphine) 2 mg Q2H PRN IV PAIN LEVEL 1-5 Last administered on 01/19/17 05:39; Admin Dose 2 MG; Start 01/18/17 at 21:00 Naloxone HCl (Narcan) 0.2 mg Q2M PRN IV FOR RESP RATE 8 OR LESS; Start at 21:00 Acetaminophen (Tylenol Supp) 650 mg Q4H PRN [place] ELEVATED TEMPERATURE Last administered on 01/19/17 07:05; Admin Dose 650 MG; Start 01/19/17 at 02:00 GIANNI HAMMER Jan 19, 2017 14:30
[2017-01-19] MEDS ORDERED: FUROSEMIDE 20 MG INJ IM ONE (15:00)
[2017-01-19] MEDS ORDERED: FUROSEMIDE 20 MG INJ IV ONE (17:00)
[2017-01-19 19:22] VITALS: BP 189/82; RESP 18
[2017-01-20] MEDS: Insulin NOVOLOG SS MILD Algorithm (NPO/TPN/ENTERAL FEEDS) SC SCH ×6 (01:16→21:00)
[2017-01-20] MEDS: FENTAnyl 2MCG/ML-ROPIV 0.2% 100 ML BAG EPI SCH ×2 (02:47→13:36)
[2017-01-20] MEDS: LEVOTHYROXINE 100 MCG VIAL IV SCH (05:39)
[2017-01-20] MEDS: PANTOPRAZOLE 40 MG INJ IV SCH (05:39)
[2017-01-20] MEDS: PIPER-TAZO 3.375 GM IV (PMX) 100 ML IVPB SCH ×3 (05:43→21:31)
[2017-01-20 05:55] LABS: ADD SCAN DIFF NO
[2017-01-20 06:20] LABS: BASOPHILS % 0.6 % (0.0-2.0); EOSINOPHILS # 0.1 10^3/ul (0.0-0.5); EOSINOPHILS % 1.4 % (0.0-7.0); HEMATOCRIT 29.4 % (37.0-47.0); HEMOGLOBIN 8.9 g/dl (12.0-16.0); LYMPHOCYTES % 31.9 % (15.0-51.0); MEAN CORPUSCULAR HEMOGLOBIN 24.9 pg (29.0-33.0); MEAN CORPUSCULAR HGB CONC 30.3 g/dl (32.0-37.0); MEAN CORPUSCULAR VOLUME 82.4 fl (82.0-101.0); MEAN PLATELET VOLUME 10.6 fl (7.4-10.4); MONOCYTE # 0.5 10^3/ul (0.3-0.9); MONOCYTES % 7.7 % (0.0-11.0); NEUTROPHIL # 3.7 10^3/ul (1.6-7.5); NEUTROPHILS % 57.9 % (39.0-77.0); PLATELET COUNT 254 10^3/UL (140-415); RED BLOOD COUNT 3.57 10^6/ul (4.20-5.40); RED CELL DISTRIBUTION WIDTH 17.8 % (11.5-14.5); WHITE BLOOD COUNT 6.4 10^3/ul (4.8-10.8)
[2017-01-20 06:33] LABS: INR 0.97; PROTIME 12.9 Sec (12.2-14.2)
[2017-01-20 06:34] LABS: PARTIAL THROMBOPLASTIN TIME 29.4 Sec (25.0-35.0)
[2017-01-20 06:37] LABS: CALCIUM 8.7 mg/dl (8.4-10.2); CREATININE 0.49 mg/dl (0.44-1.00); POTASSIUM 3.8 mmol/L (3.5-5.1)
[2017-01-20 08:00] VITALS: BP 160/76; RESP 20
[2017-01-20] MEDS: morphine 2 MG INJ IV PRN ×3 (09:22→21:33)
[2017-01-20] MEDS: hydrALAzine 20 MG INJ IV PRN (09:22)
[2017-01-20 10:07] LABS: ADD SCAN DIFF NO
[2017-01-20 10:08] LABS: BASOPHILS % 0.5 % (0.0-2.0); EOSINOPHILS # 0.1 10^3/ul (0.0-0.5); EOSINOPHILS % 1.3 % (0.0-7.0); HEMATOCRIT 29.7 % (37.0-47.0); HEMOGLOBIN 8.9 g/dl (12.0-16.0); LYMPHOCYTES # 1.9 10^3/ul (0.8-2.9); LYMPHOCYTES % 30.3 % (15.0-51.0); MEAN CORPUSCULAR HEMOGLOBIN 24.5 pg (29.0-33.0); MEAN CORPUSCULAR VOLUME 81.8 fl (82.0-101.0); MEAN PLATELET VOLUME 9.9 fl (7.4-10.4); MONOCYTE # 0.5 10^3/ul (0.3-0.9); MONOCYTES % 7.1 % (0.0-11.0); NEUTROPHIL # 3.8 10^3/ul (1.6-7.5); NEUTROPHILS % 60.5 % (39.0-77.0); PLATELET COUNT 243 10^3/UL (140-415); RED BLOOD COUNT 3.63 10^6/ul (4.20-5.40); RED CELL DISTRIBUTION WIDTH 17.3 % (11.5-14.5); WHITE BLOOD COUNT 6.3 10^3/ul (4.8-10.8)
[2017-01-20 10:30] LABS: CALCIUM 8.5 mg/dl (8.4-10.2); CREATININE 0.43 mg/dl (0.44-1.00); POTASSIUM 3.8 mmol/L (3.5-5.1)
[2017-01-20] MEDS: ACETAMINOPHEN 650 MG SUPP PR PRN ×2 (12:31→23:01)
[2017-01-20] MEDS: D5W-0.45 NACL + KCL 20 MEQ 1,000 ML IV SCH ×2 (12:40→23:43)
[2017-01-20 12:42] VITALS: BP 148/70; PULSE 89; RESP 18
--- NOTE | 2017-01-20 17:05 | PN ---
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 Continue IV fluids while patient is n.p.o. NG tube to low intermittent wall suctioning. Continue antibiotics and Dilaudid p.r.n. for pain and Zofran p.r.n. for nausea. - Postoperative fever, continue Zosyn follow-up on urine and blood cultures. Chest x-ray was pleural effusion and vascular congestion. Encourage IS. - Hypothyroidism. Continue IV Synthroid. - Diabetes mellitus type 2. Continue Accu-Cheks every 4 hours with NovoLog sliding scale coverage. - Hypertension. Continue to monitor blood pressure. Hydralazine p.r.n. for hypertension. Sequential compression devices for deep venous thrombosis prophylaxis. Further recommendations based on clinical course. Plan of care discussed with Dr. Fonseca. Subjective 24 Hr Interval Summary Free Text/Dictation alert, Febrile, EPIDURAL intact, NGT connected to LIS, FC intact, dw staff- worked with PT,limited mobility, no BM yet, family at bed side- all qs answered. Constitutional: febrile, requiring IVF, requiring O2 Respiratory: no complaints Cardiovascular: no complaints Gastrointestinal: no complaints Genitourinary: no complaints Skin: other Exam/Review of Systems Vital Signs Vitals Vital Signs Date Time Temp Pulse Resp B/P Pulse Ox O2 Delivery O2 Flow Rate FiO2 01/20/17 14:04 99.4 01/20/17 12:51 2.0 01/20/17 12:42 89 18 148/70 99 Nasal Cannula Intake and Output 01/19/17 01/19/17 01/20/17 15:00 23:00 07:00 Intake Total 1100 ml 1100 ml 620 ml Output Total 3450 ml Balance 1100 ml 1100 ml -2830 ml Exam Constitutional: alert, oriented, well developed Respiratory: diminished breath sounds Cardiovascular: nl pulses, regular rate and rhythm Gastrointestinal: other (ngt connected to low intermittent suction, hpoactive BS), soft Musculoskeletal: nl extremities to inspection Extremities: normal pulses Skin: other Results Result Diagram: 01/20/17 0945 01/20/17 0945 Results 24 hrs Laboratory Tests Test 01/19/17 17:06 01/19/17 21:34 01/20/17 01:10 01/20/17 04:43 Bedside Glucose 188 165 151 White Blood Count 6.4 Red Blood Count 3.57 L Hemoglobin 8.9 L Hematocrit 29.4 L Mean Corpuscular Volume 82.4 Mean Corpuscular Hemoglobin 24.9 L Mean Corpuscular Hemoglobin Concent 30.3 L Red Cell Distribution Width 17.8 H Platelet Count 254 Mean Platelet Volume 10.6 H Neutrophils % 57.9 Lymphocytes % 31.9 Monocytes % 7.7 Eosinophils % 1.4 Basophils % 0.6 Nucleated Red Blood Cells % 0.0 Neutrophils # 3.7 Lymphocytes # 2.0 Monocytes # 0.5 Eosinophils # 0.1 Basophils # 0.0 Nucleated Red Blood Cells # 0.0 Prothrombin Time 12.9 Prothrombin Time Ratio 1.0 INR International Normalized Ratio 0.97 Activated Partial Thromboplast Time 29.4 Sodium Level 139 Potassium Level 3.8 Chloride Level 103 Carbon Dioxide Level 31 Anion Gap 9 Blood Urea Nitrogen 6 L Creatinine 0.49 Glucose Level 163 Calcium Level 8.7 Test 01/20/17 05:47 01/20/17 09:27 01/20/17 09:45 01/20/17 12:34 Bedside Glucose 180 161 164 White Blood Count 6.3 Red Blood Count 3.63 L Hemoglobin 8.9 L Hematocrit 29.7 L Mean Corpuscular Volume 81.8 L Mean Corpuscular Hemoglobin 24.5 L Mean Corpuscular Hemoglobin Concent 30.0 L Red Cell Distribution Width 17.3 H Platelet Count 243 Mean Platelet Volume 9.9 Neutrophils % 60.5 Lymphocytes % 30.3 Monocytes % 7.1 Eosinophils % 1.3 Basophils % 0.5 Nucleated Red Blood Cells % 0.0 Neutrophils # 3.8 Lymphocytes # 1.9 Monocytes # 0.5 Eosinophils # 0.1 Basophils # 0.0 Nucleated Red Blood Cells # 0.0 Sodium Level 137 Potassium Level 3.8 Chloride Level 103 Carbon Dioxide Level 29 Anion Gap 9 Blood Urea Nitrogen 7 Creatinine 0.43 L Glucose Level 176 Calcium Level 8.5 Medications Medications Current Medications Diphenhydramine HCl (Benadryl) 25 mg Q4H PRN IV PRURITUS; Start 01/17/17 at 13: 30 Nalbuphine HCl (Nubain) 10 mg Q4H PRN IV PRURITUS; Start 01/17/17 at 13:30 Pantoprazole 40 mg 40 mg DAILY@06 IV Last administered on 01/20/17 05:39; Admin Dose 40 MG; Start 01/18/17 at 06:00 Potassium Chloride/Dextrose/ Sod Cl (D5-1/2ns + KCl 20 Meq) 1,000 ml @ 80 mls/ hr [id number] IV Last administered on 01/20/17 12:40; Admin Dose 80 MLS/HR; Start 01/17/17 at 13:34 Levothyroxine Sodium (Synthroid Iv) 50 mcg DAILY@06 IV Last administered on 05:39; Admin Dose 50 MCG; Start 01/18/17 at 06:00 Hydralazine HCl (Apresoline) 10 mg Q6H PRN IV SBP>170 Last administered on 01/20 09:22; Admin Dose 10 MG; Start 01/17/17 at 17:00 Insulin Aspart (Novolog Insulin Pen) (Adult SC Insulin - Mild Algorithm)... Q4 SC Last administered on 01/20/17 12:38; Admin Dose 1 UNIT; Start 01/17/17 at 17:30 Miscellaneous Information 1 ea NOTE XX ; Start 01/17/17 at 17:00 Glucose (Glutose) 15 gm Q15M PRN PO DECREASED GLUCOSE; Start 01/17/17 at 17:00 Glucose (Glutose) 22.5 gm Q15M PRN PO DECREASED GLUCOSE; Start 01/17/17 at 17: 00 Dextrose (D50w Syringe) 25 ml Q15M PRN IV DECREASED GLUCOSE; Start 01/17/17 at 17:00 Dextrose (D50w Syringe) 50 ml Q15M PRN IV DECREASED GLUCOSE; Start 01/17/17 at 17:00 Glucagon (Glucagen) 1 mg Q15M PRN IM DECREASED GLUCOSE; Start 01/17/17 at 17:00 Glucose 15 gm 15 gm Q15M PRN BUCCAL DECREASED GLUCOSE; Start 01/17/17 at 17:00 Piperacillin Sod/ Tazobactam Sod (Zosyn 3.375gm/ 100 ml (Pmx)) 100 ml @ 200 mls /hr Q8 IVPB Last administered on 6/22/17at 13:32; Admin Dose 200 MLS/HR; Start 01/18/17 at 17:30 Phenol (Cepastat Lozenge) 1 lozenge Q1H PRN [place] PAIN Last administered on 19:02; Admin Dose 1 LOZENGE; Start 01/18/17 at 18:00 Morphine Sulfate (morphine) 2 mg Q2H PRN IV PAIN LEVEL 1-5 Last administered on 01/20/17 14:54; Admin Dose 2 MG; Start 01/18/17 at 21:00 Naloxone HCl (Narcan) 0.2 mg Q2M PRN IV FOR RESP RATE 8 OR LESS; Start at 21:00 Acetaminophen (Tylenol Supp) 650 mg Q4H PRN [place] ELEVATED TEMPERATURE Last administered on 01/20/17 12:31; Admin Dose 650 MG; Start 01/19/17 at 02:00 SOFY ALEXANDER Jan 20, 2017 17:02
[2017-01-20 17:48] VITALS: BP 157/73; PULSE 75; RESP 16
--- NOTE | 2017-01-20 17:51 | PN ---
DATE: 01/20/2017 Postop day 3, status post laparotomy, partial gastrectomy. SUBJECTIVE: Would like to have some food or drink some water. Otherwise, no specific problem. Dante arently per instruction of the anesthesiologist, they locked the epidural and after a couple of hour s tried to get her out of bed to walk, but she could not walk. As mentioned, she is awake, she is oriented, laying down in the bed. OBJECTIVE: VITAL SIGNS: Temperature fluctuating between 109 and 108. Heart rate fluctuating between 89 and 76 , respiration 18, blood pressure 148/70, saturation 99% on 2 liters nasal cannula. LABORATORY DATA: WBC 6300 with 60% neutrophils normal. Hemoglobin 10.7. Chemistry: Sodium and po tassium normal. BUN and creatinine normal. ABDOMEN: Soft. EXTREMITIES: Legs no calf tenderness. ASSESSMENT AND PLAN: The patient is a 66-year-old with gastric tumor, status post laparoscopic part ial gastrectomy. The only problem is that the patient has running fever since 48 hours ago. Cultur es have been sent, no report yet. The chest x-ray 2 days ago showed some possible infiltration all around versus congestive heart failure. The patient does not have leukocytosis. The patient has no t had any bowel movement yet. NG tube is draining greenish bile in the past 24 hours. After 6:00 a .m., she has drained 50 mL but since this morning has drained about 250 mL. PLAN: Continue current care. Repeat chest x-ray. Dictated By: PERLITA VARNER/CARL Conf#: [id number] DID#: [id number]
--- NOTE | 2017-01-20 19:56 | CONS ---
Date/Time of Note Date/Time of Note DATE: 01/20/17 TIME: 19:49 Consultation Date/Type/Reason Admit Date/Time Jan 17, 2017 at 09:15 Initial Consult Date 01/17/17 Type of Consultation: Anesthesia Reason for Consultation Subtotal Gastrectomy 24 HR Interval Summary Free Text/Dictation POD#3 66 yr old female, was scheduled for Subtotal Gastrectomy due to Gastric Cancer. She went under combined GETA-Thoracic Epidural Anesthesia for the surgery, surgery went uneventful, patient is doing well post-op,Epidural Duramorph was given Her soar throat is improved and is much better today and completely resolved, NG Tube in place. Otherwise her pain is well controlled, Her incisional pain ia much improved since yesterday, the Epidural infusion rate is 8cc/hr. no nausea or vomiting noted. Vital signs were stable afebrile, she is alert and oriented, able to move all extremities no paresthesia or weakness reported. Thoracic catheter site is clean and intact. Plan: continue with rate 8cc/hr and morphine 2mg IV Q 2hr PRN for breakthrough pain, Patient will be ambulated today, continue her chest PT, will follow up. Exam/Review of Systems Vital Signs Vitals Vital Signs Date Time Temp Pulse Resp B/P Pulse Ox O2 Delivery O2 Flow Rate FiO2 01/20/17 17:48 99.5 75 16 157/73 95 Nasal Cannula 2.0 Intake and Output 01/19/17 01/19/17 01/20/17 15:00 23:00 07:00 Intake Total 1100 ml 1100 ml 620 ml Output Total 3450 ml Balance 1100 ml 1100 ml -2830 ml Results Result Diagram: 01/20/17 0945 01/20/17 0945 Results 24 hrs Laboratory Tests Test 01/19/17 21:34 01/20/17 01:10 01/20/17 04:43 01/20/17 05:47 Bedside Glucose 165 151 180 White Blood Count 6.4 Red Blood Count 3.57 L Hemoglobin 8.9 L Hematocrit 29.4 L Mean Corpuscular Volume 82.4 Mean Corpuscular Hemoglobin 24.9 L Mean Corpuscular Hemoglobin Concent 30.3 L Red Cell Distribution Width 17.8 H Platelet Count 254 Mean Platelet Volume 10.6 H Neutrophils % 57.9 Lymphocytes % 31.9 Monocytes % 7.7 Eosinophils % 1.4 Basophils % 0.6 Nucleated Red Blood Cells % 0.0 Neutrophils # 3.7 Lymphocytes # 2.0 Monocytes # 0.5 Eosinophils # 0.1 Basophils # 0.0 Nucleated Red Blood Cells # 0.0 Prothrombin Time 12.9 Prothrombin Time Ratio 1.0 INR International Normalized Ratio 0.97 Activated Partial Thromboplast Time 29.4 Sodium Level 139 Potassium Level 3.8 Chloride Level 103 Carbon Dioxide Level 31 Anion Gap 9 Blood Urea Nitrogen 6 L Creatinine 0.49 Glucose Level 163 Calcium Level 8.7 Test 01/20/17 09:27 01/20/17 09:45 01/20/17 12:34 01/20/17 17:43 Bedside Glucose 161 164 185 White Blood Count 6.3 Red Blood Count 3.63 L Hemoglobin 8.9 L Hematocrit 29.7 L Mean Corpuscular Volume 81.8 L Mean Corpuscular Hemoglobin 24.5 L Mean Corpuscular Hemoglobin Concent 30.0 L Red Cell Distribution Width 17.3 H Platelet Count 243 Mean Platelet Volume 9.9 Neutrophils % 60.5 Lymphocytes % 30.3 Monocytes % 7.1 Eosinophils % 1.3 Basophils % 0.5 Nucleated Red Blood Cells % 0.0 Neutrophils # 3.8 Lymphocytes # 1.9 Monocytes # 0.5 Eosinophils # 0.1 Basophils # 0.0 Nucleated Red Blood Cells # 0.0 Sodium Level 137 Potassium Level 3.8 Chloride Level 103 Carbon Dioxide Level 29 Anion Gap 9 Blood Urea Nitrogen 7 Creatinine 0.43 L Glucose Level 176 Calcium Level 8.5 Medications Medications Current Medications Diphenhydramine HCl (Benadryl) 25 mg Q4H PRN IV PRURITUS; Start 01/17/17 at 13: 30 Nalbuphine HCl (Nubain) 10 mg Q4H PRN IV PRURITUS; Start 01/17/17 at 13:30 Pantoprazole 40 mg 40 mg DAILY@06 IV Last administered on 01/20/17 05:39; Admin Dose 40 MG; Start 01/18/17 at 06:00 Potassium Chloride/Dextrose/ Sod Cl (D5-1/2ns + KCl 20 Meq) 1,000 ml @ 80 mls/ hr [id number] IV Last administered on 01/20/17 12:40; Admin Dose 80 MLS/HR; Start 01/17/17 at 13:34 Levothyroxine Sodium (Synthroid Iv) 50 mcg DAILY@06 IV Last administered on 05:39; Admin Dose 50 MCG; Start 01/18/17 at 06:00 Hydralazine HCl (Apresoline) 10 mg Q6H PRN IV SBP>170 Last administered on 01/20 09:22; Admin Dose 10 MG; Start 01/17/17 at 17:00 Insulin Aspart (Novolog Insulin Pen) (Adult SC Insulin - Mild Algorithm)... Q4 SC Last administered on 01/20/17 17:54; Admin Dose 2 UNIT; Start 01/17/17 at 17:30 Miscellaneous Information 1 ea NOTE XX ; Start 01/17/17 at 17:00 Glucose (Glutose) 15 gm Q15M PRN PO DECREASED GLUCOSE; Start 01/17/17 at 17:00 Glucose (Glutose) 22.5 gm Q15M PRN PO DECREASED GLUCOSE; Start 01/17/17 at 17: 00 Dextrose (D50w Syringe) 25 ml Q15M PRN IV DECREASED GLUCOSE; Start 01/17/17 at 17:00 Dextrose (D50w Syringe) 50 ml Q15M PRN IV DECREASED GLUCOSE; Start 01/17/17 at 17:00 Glucagon (Glucagen) 1 mg Q15M PRN IM DECREASED GLUCOSE; Start 01/17/17 at 17:00 Glucose 15 gm 15 gm Q15M PRN BUCCAL DECREASED GLUCOSE; Start 01/17/17 at 17:00 Piperacillin Sod/ Tazobactam Sod (Zosyn 3.375gm/ 100 ml (Pmx)) 100 ml @ 200 mls /hr Q8 IVPB Last administered on 01/20/17 13:32; Admin Dose 200 MLS/HR; Start 01/18/17 at 17:30 Phenol (Cepastat Lozenge) 1 lozenge Q1H PRN MT PAIN Last administered on 19:02; Admin Dose 1 LOZENGE; Start 01/18/17 at 18:00 Morphine Sulfate (morphine) 2 mg Q2H PRN IV PAIN LEVEL 1-5 Last administered on 01/20/17 14:54; Admin Dose 2 MG; Start 01/18/17 at 21:00 Naloxone HCl (Narcan) 0.2 mg Q2M PRN IV FOR RESP RATE 8 OR LESS; Start at 21:00 Acetaminophen (Tylenol Supp) 650 mg Q4H PRN [place] ELEVATED TEMPERATURE Last administered on 01/20/17t 12:31; Admin Dose 650 MG; Start 01/19/17 at 02:00 JAKE HOLMAN MD Jan 20, 2017 19:56
[2017-01-20 21:00] VITALS: BP 165/85; RESP 20
[2017-01-21] MEDS: Insulin NOVOLOG SS MILD Algorithm (NPO/TPN/ENTERAL FEEDS) SC SCH ×6 (01:27→20:34)
[2017-01-21] MEDS: FENTAnyl 2MCG/ML-ROPIV 0.2% 100 ML BAG EPI SCH ×3 (01:42→23:39)
[2017-01-21] MEDS: D5W-0.45 NACL + KCL 20 MEQ 1,000 ML IV SCH ×3 (01:43→13:29)
[2017-01-21 05:32] LABS: ADD SCAN DIFF NO
[2017-01-21] MEDS: PANTOPRAZOLE 40 MG INJ IV SCH (05:42)
[2017-01-21 05:43] LABS: BASOPHILS % 0.4 % (0.0-2.0); EOSINOPHILS # 0.1 10^3/ul (0.0-0.5); EOSINOPHILS % 1.8 % (0.0-7.0); HEMATOCRIT 28.5 % (37.0-47.0); HEMOGLOBIN 8.6 g/dl (12.0-16.0); LYMPHOCYTES # 1.6 10^3/ul (0.8-2.9); LYMPHOCYTES % 29.5 % (15.0-51.0); MEAN CORPUSCULAR HEMOGLOBIN 24.5 pg (29.0-33.0); MEAN CORPUSCULAR HGB CONC 30.2 g/dl (32.0-37.0); MEAN CORPUSCULAR VOLUME 81.2 fl (82.0-101.0); MEAN PLATELET VOLUME 10.9 fl (7.4-10.4); MONOCYTE # 0.5 10^3/ul (0.3-0.9); MONOCYTES % 8.6 % (0.0-11.0); NEUTROPHIL # 3.3 10^3/ul (1.6-7.5); NEUTROPHILS % 59.5 % (39.0-77.0); PLATELET COUNT 264 10^3/UL (140-415); RED BLOOD COUNT 3.51 10^6/ul (4.20-5.40); RED CELL DISTRIBUTION WIDTH 17.2 % (11.5-14.5); WHITE BLOOD COUNT 5.6 10^3/ul (4.8-10.8)
[2017-01-21] MEDS: LEVOTHYROXINE 100 MCG VIAL IV SCH (05:43)
[2017-01-21] MEDS: PIPER-TAZO 3.375 GM IV (PMX) 100 ML IVPB SCH ×3 (05:43→21:46)
[2017-01-21 06:09] LABS: CALCIUM 8.8 mg/dl (8.4-10.2); CREATININE 0.4 mg/dl (0.44-1.00); POTASSIUM 3.7 mmol/L (3.5-5.1)
[2017-01-21 07:45] VITALS: BP 155/68; RESP 20
--- NOTE | 2017-01-21 09:01 | RADRPT ---
PROCEDURE: XR Chest 1 View. CLINICAL INDICATION: Shortness of breath, fever. TECHNIQUE: AP view of the chest was obtained. COMPARISON: January 18, 2017 FINDINGS: The heart size is within normal limits. Calcified atherosclerosis is noted in the aorta. Nasogastri c tube has its distal end in the expected location of the stomach. Central pulmonary vascular conge stion and interstitial prominence is seen in both lungs. Patchy alveolar infiltrates in both lungs have decreased. The osseous structures are osteopenic, but appear grossly intact. Degenerative alejandro ges are seen in the shoulders. IMPRESSION: Calcified atherosclerosis in the aorta. Interval decrease in patchy alveolar infiltrates in both lungs. Central pulmonary vascular congestion and interstitial prominence in both lungs. RPTAT: AA .Dino Parra MD, Date Time Electronically viewed and signed by .Dino Parra MD, on 01/21/2017 09:01 .P/
[2017-01-21 09:28] LABS: ADD SCAN DIFF NO
[2017-01-21 09:30] LABS: BASOPHILS % 0.6 % (0.0-2.0); EOSINOPHILS # 0.1 10^3/ul (0.0-0.5); EOSINOPHILS % 1.5 % (0.0-7.0); HEMATOCRIT 29.5 % (37.0-47.0); LYMPHOCYTES # 1.8 10^3/ul (0.8-2.9); MEAN CORPUSCULAR HGB CONC 30.5 g/dl (32.0-37.0); MEAN CORPUSCULAR VOLUME 81.9 fl (82.0-101.0); MEAN PLATELET VOLUME 10.4 fl (7.4-10.4); MONOCYTE # 0.5 10^3/ul (0.3-0.9); NEUTROPHIL # 2.9 10^3/ul (1.6-7.5); NEUTROPHILS % 54.7 % (39.0-77.0); PLATELET COUNT 272 10^3/UL (140-415); RED CELL DISTRIBUTION WIDTH 17.2 % (11.5-14.5); WHITE BLOOD COUNT 5.3 10^3/ul (4.8-10.8)
[2017-01-21 10:07] LABS: INR 1.08; PT RATIO 1.1
[2017-01-21 10:08] LABS: PARTIAL THROMBOPLASTIN TIME 29.5 Sec (25.0-35.0)
--- NOTE | 2017-01-21 10:08 | RADRPT ---
Vent Rate: 83 bpm RR Interval: 0 msec MN Interval: 134 msec QRS Duration: 84 msec QT Interval: 366 msec QTC Interval: 430 msec P-R-T [place]: 49 - 40 - 35 degrees Normal sinus rhythm Normal ECG Electronically Signed By: Mike Barajas [id number]
[2017-01-21] MEDS: ACETAMINOPHEN 650 MG SUPP PR PRN (10:12)
[2017-01-21 10:26] LABS: CALCIUM 8.7 mg/dl (8.4-10.2); CREATININE 0.44 mg/dl (0.44-1.00); POTASSIUM 3.9 mmol/L (3.5-5.1)
[2017-01-21 12:00] VITALS: BP 192/93; PULSE 74; RESP 18
[2017-01-21] MEDS: hydrALAzine 20 MG INJ IV PRN (13:04)
[2017-01-21] MEDS: morphine 2 MG INJ IV PRN ×6 (13:29→23:31)
--- NOTE | 2017-01-21 13:39 | PN ---
DATE: 01/21/2017 Postop day #4 status post laparotomy, partial gastrectomy SUBJECTIVE: Feels better, has had a headache today. No bowel movement. Passing a little bit of ga s. No nausea, no vomiting. NG tube is in place. Waller catheter in place. Epidural is in place. OBJECTIVE: VITAL SIGNS: Temperature 98.5, heart rate 68, respiration 20, blood pressure 155/68, saturation 98% on room air. ABDOMEN: Soft. Dressing is intact, no tenderness around wound. EXTREMITIES: No calf tenderness. Patient was out of bed in bathroom. GASTROINTESTINAL: She states that she felt that she wants to have bowel movement but she could not. LABORATORIES: Sodium, potassium, BUN, creatinine normal. WBC 5300, hemoglobin 9, hematocrit 29.5. ASSESSMENT: A 66-year-old female status post laparoscopic partial gastrectomy, postop day#4. She i s stable. She has epidural in thoracic, the anesthesiologist is planning to remove it tomorrow. Af ter he removes it, we are going to remove the Waller catheter tomorrow as well. The patient has had a little bit of flatus, but no bowel movement yet. We will keep this n.p.o. We will see what happen s by tomorrow. PLAN: Continue current care. Dictated By: PERLITA VARNER/CARL Conf#: [id number] DID#: [id number]
[2017-01-21 14:12] VITALS: BP 133/62; PULSE 75
--- NOTE | 2017-01-21 14:50 | CONS ---
Date/Time of Note Date/Time of Note DATE: 01/21/17 TIME: 14:45 Consultation Date/Type/Reason Admit Date/Time Jan 17, 2017 at 09:15 Initial Consult Date 01/17/17 Type of Consultation: Anesthesia Reason for Consultation Subtotal Gastrectomy 24 HR Interval Summary Free Text/Dictation POD#4 66 yr old female, went under GETA/Thoracic Epidural anesthesia for a Subtotal Gastrectomy due to Gastric Cancer today is her POD#4. Surgery went uneventful, patient is doing very well today,Epidural Duramorph was given on the day of surgery. NG Tube is in place. Otherwise her pain is well controlled, the Epidural infusion rate is 8cc/hr. no nausea or vomiting noted. Vital signs were stable afebrile, she is alert and oriented, able to move all extremities no paresthesia or weakness reported. Thoracic catheter site is clean and intact. She already had started her PT, and is able to walk, today she walked to the bathroom as well with RN. Plan: continue with rate 8cc/hr and morphine 2mg IV Q 2hr PRN for breakthrough pain, continue the same management, continue her chest PT, will follow up mostly likely will DC the Epidural tomorrow afternoon.. Exam/Review of Systems Vital Signs Vitals Vital Signs Date Time Temp Pulse Resp B/P Pulse Ox O2 Delivery O2 Flow Rate FiO2 01/21/17 14:12 98.5 75 133/62 01/21/17 12:00 18 Room Air 01/21/17 08:00 2.0 01/21/17 07:45 98 Intake and Output 01/20/17 01/20/17 01/21/17 15:00 23:00 07:00 Intake Total 100 ml 1020 ml 900 ml Output Total 150 ml 1650 ml Balance 100 ml 870 ml -750 ml Results Result Diagram: 01/21/17 0850 01/21/17 0850 Results 24 hrs Laboratory Tests Test 01/20/17 17:43 01/20/17 21:30 01/21/17 01:25 01/21/17 04:20 Bedside Glucose 185 137 166 White Blood Count 5.6 Red Blood Count 3.51 L Hemoglobin 8.6 L Hematocrit 28.5 L Mean Corpuscular Volume 81.2 L Mean Corpuscular Hemoglobin 24.5 L Mean Corpuscular Hemoglobin Concent 30.2 L Red Cell Distribution Width 17.2 H Platelet Count 264 Mean Platelet Volume 10.9 H Neutrophils % 59.5 Lymphocytes % 29.5 Monocytes % 8.6 Eosinophils % 1.8 Basophils % 0.4 Nucleated Red Blood Cells % 0.0 Neutrophils # 3.3 Lymphocytes # 1.6 Monocytes # 0.5 Eosinophils # 0.1 Basophils # 0.0 Nucleated Red Blood Cells # 0.0 Sodium Level 138 Potassium Level 3.7 Chloride Level 104 Carbon Dioxide Level 29 Anion Gap 9 Blood Urea Nitrogen 7 Creatinine 0.40 L Glucose Level 159 Calcium Level 8.8 Test 01/21/17 05:23 01/21/17 08:50 01/21/17 09:07 01/21/17 13:00 Bedside Glucose 165 162 178 White Blood Count 5.3 Red Blood Count 3.60 L Hemoglobin 9.0 L Hematocrit 29.5 L Mean Corpuscular Volume 81.9 L Mean Corpuscular Hemoglobin 25.0 L Mean Corpuscular Hemoglobin Concent 30.5 L Red Cell Distribution Width 17.2 H Platelet Count 272 Mean Platelet Volume 10.4 Neutrophils % 54.7 Lymphocytes % 34.0 Monocytes % 9.0 Eosinophils % 1.5 Basophils % 0.6 Nucleated Red Blood Cells % 0.0 Neutrophils # 2.9 Lymphocytes # 1.8 Monocytes # 0.5 Eosinophils # 0.1 Basophils # 0.0 Nucleated Red Blood Cells # 0.0 Prothrombin Time 14.0 Prothrombin Time Ratio 1.1 INR International Normalized Ratio 1.08 Activated Partial Thromboplast Time 29.5 Sodium Level 137 Potassium Level 3.9 Chloride Level 102 Carbon Dioxide Level 29 Anion Gap 10 Blood Urea Nitrogen 8 Creatinine 0.44 Glucose Level 164 Calcium Level 8.7 Medications Medications Current Medications Diphenhydramine HCl (Benadryl) 25 mg Q4H PRN IV PRURITUS; Start 01/17/17 at 13: 30 Nalbuphine HCl (Nubain) 10 mg Q4H PRN IV PRURITUS; Start 01/17/17 at 13:30 Pantoprazole 40 mg 40 mg DAILY@06 IV Last administered on 01/21/17t 05:42; Admin Dose 40 MG; Start 01/18/17 at 06:00 Potassium Chloride/Dextrose/ Sod Cl (D5-1/2ns + KCl 20 Meq) 1,000 ml @ 80 mls/ hr [id number] IV Last administered on 01/21/17 13:29; Admin Dose 80 MLS/HR; Start 01/17/17 at 13:34 Levothyroxine Sodium (Synthroid Iv) 50 mcg DAILY@06 IV Last administered on 05:43; Admin Dose 50 MCG; Start 01/18/17 at 06:00 Hydralazine HCl (Apresoline) 10 mg Q6H PRN IV SBP>170 Last administered on 01/21 13:04; Admin Dose 10 MG; Start 01/17/17 at 17:00 Insulin Aspart (Novolog Insulin Pen) (Adult SC Insulin - Mild Algorithm)... Q4 SC Last administered on 01/21/17 13:03; Admin Dose 1 UNIT; Start 01/17/17 at 17:30 Miscellaneous Information 1 ea NOTE XX ; Start 01/17/17 at 17:00 Glucose (Glutose) 15 gm Q15M PRN PO DECREASED GLUCOSE; Start 01/17/17 at 17:00 Glucose (Glutose) 22.5 gm Q15M PRN PO DECREASED GLUCOSE; Start 01/17/17 at 17: 00 Dextrose (D50w Syringe) 25 ml Q15M PRN IV DECREASED GLUCOSE; Start 01/17/17 at 17:00 Dextrose (D50w Syringe) 50 ml Q15M PRN IV DECREASED GLUCOSE; Start 01/17/17 at 17:00 Glucagon (Glucagen) 1 mg Q15M PRN IM DECREASED GLUCOSE; Start 01/17/17 at 17:00 Glucose 15 gm 15 gm Q15M PRN BUCCAL DECREASED GLUCOSE; Start 01/17/17 at 17:00 Piperacillin Sod/ Tazobactam Sod (Zosyn 3.375gm/ 100 ml (Pmx)) 100 ml @ 200 mls /hr Q8 IVPB Last administered on 01/21/17 05:43; Admin Dose 200 MLS/HR; Start 01/18/17 at 17:30 Phenol (Cepastat Lozenge) 1 lozenge Q1H PRN [place] PAIN Last administered on 19:02; Admin Dose 1 LOZENGE; Start 01/18/17 at 18:00 Morphine Sulfate (morphine) 2 mg Q2H PRN IV PAIN LEVEL 1-5 Last administered on 01/21/17 13:29; Admin Dose 2 MG; Start 01/18/17 at 21:00 Naloxone HCl (Narcan) 0.2 mg Q2M PRN IV FOR RESP RATE 8 OR LESS; Start at 21:00 Acetaminophen (Tylenol Supp) 650 mg Q4H PRN [place] ELEVATED TEMPERATURE Last administered on 01/21/17t 10:12; Admin Dose 650 MG; Start 01/19/17 at 02:00 JAKE HOLMAN MD Jan 21, 2017 14:50
[2017-01-21 16:00] VITALS: BP 161/63; PULSE 74; RESP 17
[2017-01-21 19:15] VITALS: BP 168/79; RESP 18
--- NOTE | 2017-01-21 19:17 | PN ---
Date/Time of Note Date/Time of Note DATE: 01/21/17 TIME: 19:14 Assessment/Plan VTE Prophylaxis VTE Prophylaxis Intervention: SCD's Lines/Catheters IV Catheter Type (from Nrsg): Peripheral IV Urinary Cath still in place: Yes Reason Cath still needed: urinary retention Assessment/Plan Chief Complaint/Hosp Course Patient's complains of headache had an episodes of elevated blood pressure in the morning, start patients on clonidine patch for better controlled her blood pressure while patient is n.p.o. no fever, patient still has an epidural catheter for pain control. 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 Continue IV fluids while patient is n.p.o. NG tube to low intermittent wall suctioning. Continue antibiotics and Dilaudid p.r.n. for pain and Zofran p.r.n. for nausea. - Possible pneumonia, continue Zosyn. - Hypothyroidism. Continue IV Synthroid. - Diabetes mellitus type 2. Continue Accu-Cheks every 4 hours with NovoLog sliding scale coverage. - Hypertension. Continue to monitor blood pressure. Hydralazine p.r.n. for hypertension. Start patient on clonidine patch while patient is n.p.o. Sequential compression devices for deep venous thrombosis prophylaxis. Further recommendations based on clinical course. Plan of care discussed with Dr. Fonseca. Problems: Exam/Review of Systems Vital Signs Vitals Vital Signs Date Time Temp Pulse Resp B/P Pulse Ox O2 Delivery O2 Flow Rate FiO2 01/21/17 16:00 99.0 74 17 161/63 99 Room Air 2.0 Intake and Output 01/20/17 01/20/17 01/21/17 15:00 23:00 07:00 Intake Total 100 ml 1020 ml 900 ml Output Total 150 ml 1650 ml Balance 100 ml 870 ml -750 ml Exam Constitutional: alert Head: normocephalic Neck: supple Respiratory: clear to auscultation Cardiovascular: nl pulses Gastrointestinal: other (Status post surgery), soft Extremities: normal pulses Neurological: nl mental status Results Result Diagram: 01/21/17 0850 01/21/17 0850 Results 24 hrs Laboratory Tests Test 01/20/17 21:30 01/21/17 01:25 01/21/17 04:20 01/21/17 05:23 Bedside Glucose 137 166 165 White Blood Count 5.6 Red Blood Count 3.51 L Hemoglobin 8.6 L Hematocrit 28.5 L Mean Corpuscular Volume 81.2 L Mean Corpuscular Hemoglobin 24.5 L Mean Corpuscular Hemoglobin Concent 30.2 L Red Cell Distribution Width 17.2 H Platelet Count 264 Mean Platelet Volume 10.9 H Neutrophils % 59.5 Lymphocytes % 29.5 Monocytes % 8.6 Eosinophils % 1.8 Basophils % 0.4 Nucleated Red Blood Cells % 0.0 Neutrophils # 3.3 Lymphocytes # 1.6 Monocytes # 0.5 Eosinophils # 0.1 Basophils # 0.0 Nucleated Red Blood Cells # 0.0 Sodium Level 138 Potassium Level 3.7 Chloride Level 104 Carbon Dioxide Level 29 Anion Gap 9 Blood Urea Nitrogen 7 Creatinine 0.40 L Glucose Level 159 Calcium Level 8.8 Test 01/21/17 08:50 01/21/17 09:07 01/21/17 13:00 01/21/17 14:50 White Blood Count 5.3 Red Blood Count 3.60 L Hemoglobin 9.0 L Hematocrit 29.5 L Mean Corpuscular Volume 81.9 L Mean Corpuscular Hemoglobin 25.0 L Mean Corpuscular Hemoglobin Concent 30.5 L Red Cell Distribution Width 17.2 H Platelet Count 272 Mean Platelet Volume 10.4 Neutrophils % 54.7 Lymphocytes % 34.0 Monocytes % 9.0 Eosinophils % 1.5 Basophils % 0.6 Nucleated Red Blood Cells % 0.0 Neutrophils # 2.9 Lymphocytes # 1.8 Monocytes # 0.5 Eosinophils # 0.1 Basophils # 0.0 Nucleated Red Blood Cells # 0.0 Prothrombin Time 14.0 Prothrombin Time Ratio 1.1 INR International Normalized Ratio 1.08 Activated Partial Thromboplast Time 29.5 Sodium Level 137 Potassium Level 3.9 Chloride Level 102 Carbon Dioxide Level 29 Anion Gap 10 Blood Urea Nitrogen 8 Creatinine 0.44 Glucose Level 164 Calcium Level 8.7 Bedside Glucose 162 178 Troponin I < 0.012 Test 01/21/17 15:15 01/21/17 17:16 Bedside Glucose 178 167 Medications Medications Current Medications Diphenhydramine HCl (Benadryl) 25 mg Q4H PRN IV PRURITUS; Start 01/17/17 at 13: 30 Nalbuphine HCl (Nubain) 10 mg Q4H PRN IV PRURITUS; Start 01/17/17 at 13:30 Pantoprazole 40 mg 40 mg DAILY@06 IV Last administered on 01/21/17 05:42; Admin Dose 40 MG; Start 01/18/17 at 06:00 Potassium Chloride/Dextrose/ Sod Cl (D5-1/2ns + KCl 20 Meq) 1,000 ml @ 80 mls/ hr [id number] IV Last administered on 01/21/17 13:29; Admin Dose 80 MLS/HR; Start 01/17/17 at 13:34 Levothyroxine Sodium (Synthroid Iv) 50 mcg DAILY@06 IV Last administered on 05:43; Admin Dose 50 MCG; Start 01/18/17 at 06:00 Hydralazine HCl (Apresoline) 10 mg Q6H PRN IV SBP>170 Last administered on 01/21 13:04; Admin Dose 10 MG; Start 01/17/17 at 17:00 Insulin Aspart (Novolog Insulin Pen) (Adult SC Insulin - Mild Algorithm)... Q4 SC Last administered on 01/21/17 17:26; Admin Dose 1 UNIT; Start 01/17/17 at 17:30 Miscellaneous Information 1 ea NOTE XX ; Start 01/17/17 at 17:00 Glucose (Glutose) 15 gm Q15M PRN PO DECREASED GLUCOSE; Start 01/17/17 at 17:00 Glucose (Glutose) 22.5 gm Q15M PRN PO DECREASED GLUCOSE; Start 01/17/17 at 17: 00 Dextrose (D50w Syringe) 25 ml Q15M PRN IV DECREASED GLUCOSE; Start 01/17/17 at 17:00 Dextrose (D50w Syringe) 50 ml Q15M PRN IV DECREASED GLUCOSE; Start 01/17/17 at 17:00 Glucagon (Glucagen) 1 mg Q15M PRN IM DECREASED GLUCOSE; Start 01/17/17 at 17:00 Glucose 15 gm 15 gm Q15M PRN BUCCAL DECREASED GLUCOSE; Start 01/17/17 at 17:00 Piperacillin Sod/ Tazobactam Sod (Zosyn 3.375gm/ 100 ml (Pmx)) 100 ml @ 200 mls /hr Q8 IVPB Last administered on 01/21/17 15:11; Admin Dose 200 MLS/HR; Start 01/18/17 at 17:30 Phenol (Cepastat Lozenge) 1 lozenge Q1H PRN MT PAIN Last administered on 19:02; Admin Dose 1 LOZENGE; Start 01/18/17 at 18:00 Morphine Sulfate (morphine) 2 mg Q2H PRN IV PAIN LEVEL 1-5 Last administered on 01/21/17 17:29; Admin Dose 2 MG; Start 01/18/17 at 21:00 Naloxone HCl (Narcan) 0.2 mg Q2M PRN IV FOR RESP RATE 8 OR LESS; Start at 21:00 Acetaminophen (Tylenol Supp) 650 mg Q4H PRN [place] ELEVATED TEMPERATURE Last administered on 01/21/17 10:12; Admin Dose 650 MG; Start 01/19/17 at 02:00 GIANNI HAMMER Jan 21, 2017 19:17
[2017-01-21] MEDS ORDERED: CLONIDINE 0.1 MG/24 HR PATCH TRANSDERM SCH (19:30)
[2017-01-22] VITALS (9 sets, daily range): BP systolic 132–180; BP diastolic 60–80; PULSE 72–82; RESP 17–22
[2017-01-22] MEDS: hydrALAzine 20 MG INJ IV PRN ×3 (00:12→15:40)
[2017-01-22] MEDS: D5W-0.45 NACL + KCL 20 MEQ 1,000 ML IV SCH ×3 (00:43→18:20)
[2017-01-22] MEDS: Insulin NOVOLOG SS MILD Algorithm (NPO/TPN/ENTERAL FEEDS) SC SCH ×6 (01:21→21:54)
[2017-01-22] MEDS: morphine 2 MG INJ IV PRN ×5 (03:31→21:56)
[2017-01-22 05:09] LABS: ADD SCAN DIFF NO
[2017-01-22 05:19] LABS: BASOPHILS % 0.3 % (0.0-2.0); EOSINOPHILS # 0.1 10^3/ul (0.0-0.5); EOSINOPHILS % 0.9 % (0.0-7.0); HEMATOCRIT 30.5 % (37.0-47.0); HEMOGLOBIN 9.5 g/dl (12.0-16.0); LYMPHOCYTES # 1.4 10^3/ul (0.8-2.9); LYMPHOCYTES % 24.4 % (15.0-51.0); MEAN CORPUSCULAR HEMOGLOBIN 24.9 pg (29.0-33.0); MEAN CORPUSCULAR HGB CONC 31.1 g/dl (32.0-37.0); MEAN CORPUSCULAR VOLUME 79.8 fl (82.0-101.0); MEAN PLATELET VOLUME 9.9 fl (7.4-10.4); MONOCYTE # 0.5 10^3/ul (0.3-0.9); MONOCYTES % 8.9 % (0.0-11.0); NEUTROPHIL # 3.8 10^3/ul (1.6-7.5); NEUTROPHILS % 65.2 % (39.0-77.0); PLATELET COUNT 315 10^3/UL (140-415); RED BLOOD COUNT 3.82 10^6/ul (4.20-5.40); RED CELL DISTRIBUTION WIDTH 17.4 % (11.5-14.5); WHITE BLOOD COUNT 5.9 10^3/ul (4.8-10.8)
[2017-01-22 05:47] LABS: CALCIUM 8.9 mg/dl (8.4-10.2); CREATININE 0.36 mg/dl (0.44-1.00); POTASSIUM 3.6 mmol/L (3.5-5.1)
[2017-01-22] MEDS: LEVOTHYROXINE 100 MCG VIAL IV SCH (06:40)
[2017-01-22] MEDS: PANTOPRAZOLE 40 MG INJ IV SCH (06:40)
[2017-01-22] MEDS: PIPER-TAZO 3.375 GM IV (PMX) 100 ML IVPB SCH ×3 (06:41→21:56)
--- NOTE | 2017-01-22 08:21 | CONS ---
Date/Time of Note Date/Time of Note DATE: 01/22/17 TIME: 08:17 Consultation Date/Type/Reason Admit Date/Time Jan 17, 2017 at 09:15 Initial Consult Date 01/17/17 Type of Consultation: Anesthesia Reason for Consultation Subtotal Gastrectomy 24 HR Interval Summary Free Text/Dictation POD#5 66 yr old female, went under GETA/Thoracic Epidural anesthesia for a Subtotal Gastrectomy due to Gastric Cancer today is her POD#5. Surgery went uneventful, patient is doing very well today,Epidural Duramorph was given on the day of surgery. NG Tube is in place. Otherwise her pain is well controlled, the Epidural infusion rate is 8cc/hr. no nausea or vomiting noted. Vital signs were stable afebrile, she is alert and oriented, able to move all extremities no paresthesia or weakness reported. Thoracic catheter site is clean and intact. She already had started her PT, and is able to walk, today she walked to the bathroom as well with RN. Plan: D/C the Epidural today, Catheter was removed, catheter site is clean and intact. continue morphine 2mg IV Q 2hr PRN for breakthrough pain, continue her chest and physical therapy PT, will be followed by the primary team, thank you for the consult and please re consult PRN. Exam/Review of Systems Vital Signs Vitals Vital Signs Date Time Temp Pulse Resp B/P Pulse Ox O2 Delivery O2 Flow Rate FiO2 01/22/17 07:00 98.8 77 18 132/68 97 01/22/17 03:53 Nasal Cannula 1.5 Intake and Output 01/21/17 01/21/17 01/22/17 15:00 23:00 07:00 Intake Total 1000 ml 880 ml Output Total 950 ml 950 ml Balance 50 ml -70 ml Results Result Diagram: 01/22/17 0451 01/22/17 0451 Results 24 hrs Laboratory Tests Test 01/21/17 08:50 01/21/17 09:07 01/21/17 13:00 01/21/17 14:50 White Blood Count 5.3 Red Blood Count 3.60 L Hemoglobin 9.0 L Hematocrit 29.5 L Mean Corpuscular Volume 81.9 L Mean Corpuscular Hemoglobin 25.0 L Mean Corpuscular Hemoglobin Concent 30.5 L Red Cell Distribution Width 17.2 H Platelet Count 272 Mean Platelet Volume 10.4 Neutrophils % 54.7 Lymphocytes % 34.0 Monocytes % 9.0 Eosinophils % 1.5 Basophils % 0.6 Nucleated Red Blood Cells % 0.0 Neutrophils # 2.9 Lymphocytes # 1.8 Monocytes # 0.5 Eosinophils # 0.1 Basophils # 0.0 Nucleated Red Blood Cells # 0.0 Prothrombin Time 14.0 Prothrombin Time Ratio 1.1 INR International Normalized Ratio 1.08 Activated Partial Thromboplast Time 29.5 Sodium Level 137 Potassium Level 3.9 Chloride Level 102 Carbon Dioxide Level 29 Anion Gap 10 Blood Urea Nitrogen 8 Creatinine 0.44 Glucose Level 164 Calcium Level 8.7 Bedside Glucose 162 178 Troponin I < 0.012 Test 01/21/17 15:15 01/21/17 17:16 01/21/17 20:28 01/21/17 22:51 Bedside Glucose 178 167 197 Troponin I < 0.012 Test 01/22/17 01:17 01/22/17 04:51 01/22/17 04:56 Bedside Glucose 160 163 White Blood Count 5.9 Red Blood Count 3.82 L Hemoglobin 9.5 L Hematocrit 30.5 L Mean Corpuscular Volume 79.8 L Mean Corpuscular Hemoglobin 24.9 L Mean Corpuscular Hemoglobin Concent 31.1 L Red Cell Distribution Width 17.4 H Platelet Count 315 Mean Platelet Volume 9.9 Neutrophils % 65.2 Lymphocytes % 24.4 Monocytes % 8.9 Eosinophils % 0.9 Basophils % 0.3 Nucleated Red Blood Cells % 0.0 Neutrophils # 3.8 Lymphocytes # 1.4 Monocytes # 0.5 Eosinophils # 0.1 Basophils # 0.0 Nucleated Red Blood Cells # 0.0 Sodium Level 134 L Potassium Level 3.6 Chloride Level 101 Carbon Dioxide Level 27 Anion Gap 10 Blood Urea Nitrogen 8 Creatinine 0.36 L Glucose Level 181 Calcium Level 8.9 Troponin I < 0.012 Medications Medications Current Medications Diphenhydramine HCl (Benadryl) 25 mg Q4H PRN IV PRURITUS; Start 01/17/17 at 13: 30 Nalbuphine HCl (Nubain) 10 mg Q4H PRN IV PRURITUS; Start 01/17/17 at 13:30 Pantoprazole 40 mg 40 mg DAILY@06 IV Last administered on 01/22/17t 06:40; Admin Dose 40 MG; Start 6/20/17 at 06:00 Potassium Chloride/Dextrose/ Sod Cl (D5-1/2ns + KCl 20 Meq) 1,000 ml @ 80 mls/ hr [id number] IV Last administered on 01/22/17 03:52; Admin Dose 80 MLS/HR; Start 01/17/17 at 13:34 Levothyroxine Sodium (Synthroid Iv) 50 mcg DAILY@06 IV Last administered on 06:40; Admin Dose 50 MCG; Start 01/18/17 at 06:00 Hydralazine HCl (Apresoline) 10 mg Q6H PRN IV SBP>170 Last administered on 01/22 00:12; Admin Dose 10 MG; Start 01/17/17 at 17:00 Insulin Aspart (Novolog Insulin Pen) (Adult SC Insulin - Mild Algorithm)... Q4 SC Last administered on 01/22/17 05:01; Admin Dose 1 UNIT; Start 01/17/17 at 17:30 Miscellaneous Information 1 ea NOTE XX ; Start 01/17/17 at 17:00 Glucose (Glutose) 15 gm Q15M PRN PO DECREASED GLUCOSE; Start 01/17/17 at 17:00 Glucose (Glutose) 22.5 gm Q15M PRN PO DECREASED GLUCOSE; Start 01/17/17 at 17: 00 Dextrose (D50w Syringe) 25 ml Q15M PRN IV DECREASED GLUCOSE; Start 01/17/17 at 17:00 Dextrose (D50w Syringe) 50 ml Q15M PRN IV DECREASED GLUCOSE; Start 01/17/17 at 17:00 Glucagon (Glucagen) 1 mg Q15M PRN IM DECREASED GLUCOSE; Start 01/17/17 at 17:00 Glucose 15 gm 15 gm Q15M PRN BUCCAL DECREASED GLUCOSE; Start 01/17/17 at 17:00 Piperacillin Sod/ Tazobactam Sod (Zosyn 3.375gm/ 100 ml (Pmx)) 100 ml @ 200 mls /hr Q8 IVPB Last administered on 01/22/17 06:41; Admin Dose 200 MLS/HR; Start 01/18/17 at 17:30 Phenol (Cepastat Lozenge) 1 lozenge Q1H PRN MT PAIN Last administered on 19:02; Admin Dose 1 LOZENGE; Start 01/18/17 at 18:00 Morphine Sulfate (morphine) 2 mg Q2H PRN IV PAIN LEVEL 1-5 Last administered on 01/22/17 06:41; Admin Dose 2 MG; Start 01/18/17 at 21:00 Naloxone HCl (Narcan) 0.2 mg Q2M PRN IV FOR RESP RATE 8 OR LESS; Start at 21:00 Acetaminophen (Tylenol Supp) 650 mg Q4H PRN [place] ELEVATED TEMPERATURE Last administered on 01/21/17 10:12; Admin Dose 650 MG; Start 01/19/17 at 02:00 Clonidine HCl (Catapres-Tts 1 Patch) 1 patch Q7D TRANSDERM Last administered on 01/21/17 20:26; Admin Dose 1 PATCH; Start 01/21/17 at 19:30 JAKE HOLMAN MD Jan 22, 2017 08:21
--- NOTE | 2017-01-22 12:32 | PN ---
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 Continue IV fluids while patient is n.p.o. NG tube to low intermittent wall suctioning. Continue antibiotics and Dilaudid p.r.n. for pain and Zofran p.r.n. for nausea. - Possible pneumonia, continue Zosyn. - Hypothyroidism. Continue IV Synthroid. - Diabetes mellitus type 2. Continue Accu-Cheks every 4 hours with NovoLog sliding scale coverage. - Hypertension. Continue to monitor blood pressure. Hydralazine p.r.n. for hypertension. Start patient on clonidine patch while patient is n.p.o. Problems: Subjective 24 Hr Interval Summary Free Text/Dictation Patient has no complaints Exam/Review of Systems Vital Signs Vitals Vital Signs Date Time Temp Pulse Resp B/P Pulse Ox O2 Delivery O2 Flow Rate FiO2 01/22/17 10:54 98.7 72 176/80 99 Nasal Cannula 1.5 01/22/17 07:00 18 Intake and Output 01/21/17 01/21/17 01/22/17 15:00 23:00 07:00 Intake Total 1000 ml 880 ml Output Total 950 ml 950 ml Balance 50 ml -70 ml Exam Constitutional: well developed Head: atraumatic, normocephalic Neck: supple Respiratory: clear to auscultation Cardiovascular: regular rate and rhythm Gastrointestinal: non-tender, soft Extremities: normal pulses Results Result Diagram: 01/22/17 0451 01/22/17 0451 Results 24 hrs Laboratory Tests Test 01/21/17 13:00 01/21/17 14:50 01/21/17 15:15 01/21/17 17:16 Bedside Glucose 178 178 167 Troponin I < 0.012 Test 01/21/17 20:28 01/21/17 22:51 01/22/17 01:17 01/22/17 04:51 Bedside Glucose 197 160 Troponin I < 0.012 < 0.012 White Blood Count 5.9 Red Blood Count 3.82 L Hemoglobin 9.5 L Hematocrit 30.5 L Mean Corpuscular Volume 79.8 L Mean Corpuscular Hemoglobin 24.9 L Mean Corpuscular Hemoglobin Concent 31.1 L Red Cell Distribution Width 17.4 H Platelet Count 315 Mean Platelet Volume 9.9 Neutrophils % 65.2 Lymphocytes % 24.4 Monocytes % 8.9 Eosinophils % 0.9 Basophils % 0.3 Nucleated Red Blood Cells % 0.0 Neutrophils # 3.8 Lymphocytes # 1.4 Monocytes # 0.5 Eosinophils # 0.1 Basophils # 0.0 Nucleated Red Blood Cells # 0.0 Sodium Level 134 L Potassium Level 3.6 Chloride Level 101 Carbon Dioxide Level 27 Anion Gap 10 Blood Urea Nitrogen 8 Creatinine 0.36 L Glucose Level 181 Calcium Level 8.9 Test 01/22/17 04:56 01/22/17 08:38 Bedside Glucose 163 164 Medications Medications Current Medications Diphenhydramine HCl (Benadryl) 25 mg Q4H PRN IV PRURITUS; Start 01/17/17 at 13: 30 Nalbuphine HCl (Nubain) 10 mg Q4H PRN IV PRURITUS; Start 01/17/17 at 13:30 Pantoprazole 40 mg 40 mg DAILY@06 IV Last administered on 01/22/17 06:40; Admin Dose 40 MG; Start 01/18/17 at 06:00 Potassium Chloride/Dextrose/ Sod Cl (D5-1/2ns + KCl 20 Meq) 1,000 ml @ 80 mls/ hr [id number] IV Last administered on 01/22/17 03:52; Admin Dose 80 MLS/HR; Start 01/17/17 at 13:34 Levothyroxine Sodium (Synthroid Iv) 50 mcg DAILY@06 IV Last administered on 06:40; Admin Dose 50 MCG; Start 01/18/17 at 06:00 Hydralazine HCl (Apresoline) 10 mg Q6H PRN IV SBP>170 Last administered on 01/22 10:54; Admin Dose 10 MG; Start 01/17/17 at 17:00 Insulin Aspart (Novolog Insulin Pen) (Adult SC Insulin - Mild Algorithm)... Q4 SC Last administered on 01/22/17 08:49; Admin Dose 1 UNIT; Start 01/17/17 at 17:30 Miscellaneous Information 1 ea NOTE XX ; Start 01/17/17 at 17:00 Glucose (Glutose) 15 gm Q15M PRN PO DECREASED GLUCOSE; Start 01/17/17 at 17:00 Glucose (Glutose) 22.5 gm Q15M PRN PO DECREASED GLUCOSE; Start 01/17/17 at 17: 00 Dextrose (D50w Syringe) 25 ml Q15M PRN IV DECREASED GLUCOSE; Start 01/17/17 at 17:00 Dextrose (D50w Syringe) 50 ml Q15M PRN IV DECREASED GLUCOSE; Start 01/17/17 at 17:00 Glucagon (Glucagen) 1 mg Q15M PRN IM DECREASED GLUCOSE; Start 01/17/17 at 17:00 Glucose 15 gm 15 gm Q15M PRN BUCCAL DECREASED GLUCOSE; Start 01/17/17 at 17:00 Piperacillin Sod/ Tazobactam Sod (Zosyn 3.375gm/ 100 ml (Pmx)) 100 ml @ 200 mls /hr Q8 IVPB Last administered on 01/22/17 06:41; Admin Dose 200 MLS/HR; Start 01/18/17 at 17:30 Phenol (Cepastat Lozenge) 1 lozenge Q1H PRN MT PAIN Last administered on 19:02; Admin Dose 1 LOZENGE; Start 01/18/17 at 18:00 Morphine Sulfate (morphine) 2 mg Q2H PRN IV PAIN LEVEL 1-5 Last administered on 01/22/17 06:41; Admin Dose 2 MG; Start 01/18/17 at 21:00 Naloxone HCl (Narcan) 0.2 mg Q2M PRN IV FOR RESP RATE 8 OR LESS; Start at 21:00 Acetaminophen (Tylenol Supp) 650 mg Q4H PRN [place] ELEVATED TEMPERATURE Last administered on 01/21/17 10:12; Admin Dose 650 MG; Start 01/19/17 at 02:00 Clonidine HCl (Catapres-Tts 1 Patch) 1 patch Q7D TRANSDERM Last administered on 01/21/17 20:26; Admin Dose 1 PATCH; Start 01/21/17 at 19:30 Morphine Sulfate (morphine) 2 mg Q2H PRN IV PAIN Last administered on 11:46; Admin Dose 2 MG; Start 01/22/17 at 11:00 CHEL GRIFFIN 24, 2017 12:32
[2017-01-22] MEDS: ACETAMINOPHEN 1000MG/100ML IV 100 ML IVPB PRN ×2 (15:40→23:20)
--- NOTE | 2017-01-22 16:01 | PN ---
DATE: 01/22/2017 Postop day #5 status post laparotomy, partial gastrectomy. SUBJECTIVE: The patient is seen complaining of headache. Blood pressure has been up, systolic 180 all the time when they are trying to bring it down. OBJECTIVE: GENERAL: Awake, alert, oriented x3. VITAL SIGNS: Temperature 98.9, heart rate 82, blood pressure 164/74 and 180/80, saturation 99% on 1 .5 liters nasal cannula. ABDOMEN: Soft, is not distended. Bowel sounds are hypoactive. Dressing changed, wound is clean. NG tube is draining slightly brownish fluid. It has changed from greenish to brownish. EXTREMITIES : No calf tenderness. LABORATORY DATA: Today, WBC now 5900 with normal differential, hemoglobin 9.5, hematocrit 30.5. Ch emistry: Sodium, potassium normal. BUN, creatinine normal. Calcium 8.9. ASSESSMENT AND PLAN: A 66-year-old, 5 days post partial gastrectomy. The patient has not had any b owel movement yet. She is not really passing that much of gas. The blood pressure has been up, the y are trying to bring it down. The wound is clean. Today, the epidural was removed. We are going to discontinue the Waller and before that, we are going to send a urine culture. We will get the pat damon out of bed, sitting in the chair. Hopefully by tomorrow she is going to have some bowel moveme nt. As soon as she has a bowel movement, we will probably remove the NG tube and start feeding john r liquids. Dictated By: PERLITA VARNER/CARL Conf#: [id number] DID#: [id number]
[2017-01-23] MEDS: Insulin NOVOLOG SS MILD Algorithm (NPO/TPN/ENTERAL FEEDS) SC SCH ×6 (01:20→21:50)
[2017-01-23] MEDS: morphine 2 MG INJ IV PRN ×4 (03:46→19:53)
[2017-01-23] MEDS: PIPER-TAZO 3.375 GM IV (PMX) 100 ML IVPB SCH ×3 (05:45→21:35)
[2017-01-23] MEDS: PANTOPRAZOLE 40 MG INJ IV SCH (05:46)
[2017-01-23] MEDS: LEVOTHYROXINE 100 MCG VIAL IV SCH (05:46)
[2017-01-23] MEDS: ACETAMINOPHEN 1000MG/100ML IV 100 ML IVPB PRN ×2 (06:56→12:44)
[2017-01-23 07:44] VITALS: BP 173/76; RESP 16
[2017-01-23] MEDS: hydrALAzine 20 MG INJ IV PRN ×2 (08:12→19:54)
[2017-01-23] MEDS: D5W-0.45 NACL + KCL 20 MEQ 1,000 ML IV SCH (10:15)
[2017-01-23 10:17] VITALS: BP 155/72; PULSE 80
--- NOTE | 2017-01-23 12:27 | PN ---
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 Continue IV fluids while patient is n.p.o. NG tube to low intermittent wall suctioning. Continue antibiotics and Dilaudid p.r.n. for pain and Zofran p.r.n. for nausea. - Possible pneumonia, continue Zosyn. - Hypothyroidism. Continue IV Synthroid. - Diabetes mellitus type 2. Continue Accu-Cheks every 4 hours with NovoLog sliding scale coverage. - Hypertension. Continue to monitor blood pressure. Hydralazine p.r.n. for hypertension. Start patient on clonidine patch while patient is n.p.o. Problems: Subjective 24 Hr Interval Summary Free Text/Dictation Patient complain of pain in throat Exam/Review of Systems Vital Signs Vitals Vital Signs Date Time Temp Pulse Resp B/P Pulse Ox O2 Delivery O2 Flow Rate FiO2 01/23/17 10:17 80 155/72 98 Room Air 01/23/17 07:44 99.2 16 01/22/17 20:10 1.5 Intake and Output 01/22/17 01/22/17 01/23/17 15:00 23:00 07:00 Intake Total 200 ml 1170 ml 950 ml Output Total 1500 ml 1150 ml Balance 200 ml -330 ml -200 ml Exam Constitutional: well developed Head: atraumatic, normocephalic Neck: supple Respiratory: diminished breath sounds Cardiovascular: regular rate and rhythm Gastrointestinal: non-tender, soft Extremities: normal pulses Results Result Diagram: 01/22/17 0451 01/22/17 0451 Results 24 hrs Laboratory Tests Test 01/22/17 13:21 01/22/17 16:41 01/22/17 21:50 01/23/17 01:17 Bedside Glucose 174 159 182 172 Test 01/23/17 05:44 01/23/17 08:57 Bedside Glucose 163 152 Medications Medications Current Medications Diphenhydramine HCl (Benadryl) 25 mg Q4H PRN IV PRURITUS; Start 01/17/17 at 13: 30 Nalbuphine HCl (Nubain) 10 mg Q4H PRN IV PRURITUS; Start 01/17/17 at 13:30 Pantoprazole 40 mg 40 mg DAILY@06 IV Last administered on 01/23/17 05:46; Admin Dose 40 MG; Start 01/18/17 at 06:00 Potassium Chloride/Dextrose/ Sod Cl (D5-1/2ns + KCl 20 Meq) 1,000 ml @ 80 mls/ hr [id number] IV Last administered on 01/23/17 10:15; Admin Dose 80 MLS/HR; Start 01/17/17 at 13:34 Levothyroxine Sodium (Synthroid Iv) 50 mcg DAILY@06 IV Last administered on 05:46; Admin Dose 50 MCG; Start 01/18/17 at 06:00 Insulin Aspart (Novolog Insulin Pen) (Adult SC Insulin - Mild Algorithm)... Q4 SC Last administered on 01/23/17 09:01; Admin Dose 1 UNIT; Start 01/17/17 at 17:30 Miscellaneous Information 1 ea NOTE XX ; Start 01/17/17 at 17:00 Glucose (Glutose) 15 gm Q15M PRN PO DECREASED GLUCOSE; Start 01/17/17 at 17:00 Glucose (Glutose) 22.5 gm Q15M PRN PO DECREASED GLUCOSE; Start 01/17/17 at 17: 00 Dextrose (D50w Syringe) 25 ml Q15M PRN IV DECREASED GLUCOSE; Start 01/17/17 at 17:00 Dextrose (D50w Syringe) 50 ml Q15M PRN IV DECREASED GLUCOSE; Start 01/17/17 at 17:00 Glucagon (Glucagen) 1 mg Q15M PRN IM DECREASED GLUCOSE; Start 01/17/17 at 17:00 Glucose 15 gm 15 gm Q15M PRN BUCCAL DECREASED GLUCOSE; Start 01/17/17 at 17:00 Piperacillin Sod/ Tazobactam Sod (Zosyn 3.375gm/ 100 ml (Pmx)) 100 ml @ 200 mls /hr Q8 IVPB Last administered on 01/23/17 05:45; Admin Dose 200 MLS/HR; Start 01/18/17 at 17:30 Phenol (Cepastat Lozenge) 1 lozenge Q1H PRN MT PAIN Last administered on 19:02; Admin Dose 1 LOZENGE; Start 01/18/17 at 18:00 Morphine Sulfate (morphine) 2 mg Q2H PRN IV PAIN LEVEL 1-5 Last administered on 01/22/17 06:41; Admin Dose 2 MG; Start 01/18/17 at 21:00 Naloxone HCl (Narcan) 0.2 mg Q2M PRN IV FOR RESP RATE 8 OR LESS; Start at 21:00 Acetaminophen (Tylenol Supp) 650 mg Q4H PRN [place] ELEVATED TEMPERATURE Last administered on 01/21/17 10:12; Admin Dose 650 MG; Start 01/19/17 at 02:00 Clonidine HCl (Catapres-Tts 1 Patch) 1 patch Q7D TRANSDERM Last administered on 01/21/17 20:26; Admin Dose 1 PATCH; Start 01/21/17 at 19:30 Morphine Sulfate (morphine) 2 mg Q2H PRN IV PAIN Last administered on 08:20; Admin Dose 2 MG; Start 01/22/17 at 11:00 Hydralazine HCl 10 mg 10 mg Q4H PRN IV SBP>170 Last administered on 01/23/17 08:12; Admin Dose 10 MG; Start 01/22/17 at 16:00 Acetaminophen (Ofirmev 1000mg/ 100ml Iv) 100 ml @ 400 mls/hr Q6H PRN IVPB HEADACHE Last administered on 01/23/17 06:56; Admin Dose 400 MLS/HR; Start at 16:00 CHEL GRIFFIN Jan 23, 2017 12:27
[2017-01-23 13:02] VITALS: BP 149/70; PULSE 78; RESP 18
[2017-01-23 19:05] VITALS: BP 172/73; RESP 18
[2017-01-23] MEDS: HYDROmorphONE 1 MG/ML SYG IV PRN (21:52)
[2017-01-24] MEDS: D5W-0.45 NACL + KCL 20 MEQ 1,000 ML IV SCH ×4 (00:55→20:31)
[2017-01-24] MEDS: Insulin NOVOLOG SS MILD Algorithm (NPO/TPN/ENTERAL FEEDS) SC SCH ×4 (01:35→15:06)
[2017-01-24 05:19] LABS: ADD SCAN DIFF NO
[2017-01-24 05:35] LABS: BASOPHILS % 0.8 % (0.0-2.0); EOSINOPHILS # 0.1 10^3/ul (0.0-0.5); EOSINOPHILS % 1.5 % (0.0-7.0); HEMATOCRIT 32.2 % (37.0-47.0); LYMPHOCYTES # 1.7 10^3/ul (0.8-2.9); LYMPHOCYTES % 31.9 % (15.0-51.0); MEAN CORPUSCULAR HEMOGLOBIN 24.9 pg (29.0-33.0); MEAN CORPUSCULAR HGB CONC 31.1 g/dl (32.0-37.0); MEAN CORPUSCULAR VOLUME 80.1 fl (82.0-101.0); MEAN PLATELET VOLUME 9.9 fl (7.4-10.4); MONOCYTE # 0.6 10^3/ul (0.3-0.9); MONOCYTES % 10.6 % (0.0-11.0); NEUTROPHIL # 2.9 10^3/ul (1.6-7.5); NEUTROPHILS % 54.8 % (39.0-77.0); PLATELET COUNT 372 10^3/UL (140-415); RED BLOOD COUNT 4.02 10^6/ul (4.20-5.40); RED CELL DISTRIBUTION WIDTH 17.8 % (11.5-14.5); WHITE BLOOD COUNT 5.3 10^3/ul (4.8-10.8)
[2017-01-24] MEDS: PIPER-TAZO 3.375 GM IV (PMX) 100 ML IVPB SCH ×3 (05:51→21:57)
[2017-01-24] MEDS: PANTOPRAZOLE 40 MG INJ IV SCH (05:51)
[2017-01-24] MEDS: LEVOTHYROXINE 100 MCG VIAL IV SCH (05:51)
[2017-01-24 05:54] LABS: CREATININE 0.4 mg/dl (0.44-1.00); POTASSIUM 3.8 mmol/L (3.5-5.1)
--- NOTE | 2017-01-24 07:39 | PN ---
DATE: 01/23/2017 Postop day 6. SUBJECTIVE: Complains of headache. Per nurse, has been out of bed, walking a little bit but got dizzy, so they put her back. She is on antihypertensive medication. No bowel movement. No flatus. No vomiting. NG tube is in place. Waller was removed and the patient has urinated. OBJECTIVE GENERAL: Awake, alert, oriented. VITAL SIGNS: Temperature 99, heart rate 78, respirations 18, blood pressure 149 /70, saturation 97% on room air. Blood test not done today. ABDOMEN: Soft. EXTREMITIES: Legs no calf tenderness. ASSESSMENT AND PLAN: The patient is a 66-year-old status post partial gastrectomy for a gastrointestinal seroma tumor resection. Postoperative day #6 , has not had a bowel movement since operation a couple of days ago passes a little flatus_the NG tube is draining kind of brownish liquid. It is not greenish any more. 100 mL since 7:00 a.m. by now, which she is about 8 hours. Continue current care. I am going to get a Gastrografin upper GI tomorrow and if everything is okay, we will remove the NG tube and feed the patient . Dictated By: PERLITA VARNER/CARL Conf#: [id number] DID#: [id number] MTDD
[2017-01-24 08:54] VITALS: BP 158/72; RESP 18
[2017-01-24] MEDS: HYDROmorphONE 1 MG/ML SYG IV PRN ×3 (11:12→21:57)
[2017-01-24] MEDS ORDERED: DIATR MEGLU/DIATRIZOATE SODIUM 120 ML BTL ONE ×2 (12:22→12:37)
[2017-01-24 14:09] VITALS: BP 151/70; PULSE 70
[2017-01-24 15:51] LABS: ADD SCAN DIFF NO
[2017-01-24 15:53] LABS: BASOPHILS % 0.4 % (0.0-2.0); EOSINOPHILS % 0.4 % (0.0-7.0); HEMATOCRIT 33.6 % (37.0-47.0); HEMOGLOBIN 10.4 g/dl (12.0-16.0); LYMPHOCYTES % 19.1 % (15.0-51.0); MEAN CORPUSCULAR HEMOGLOBIN 24.9 pg (29.0-33.0); MEAN CORPUSCULAR VOLUME 80.4 fl (82.0-101.0); MEAN PLATELET VOLUME 9.4 fl (7.4-10.4); MONOCYTE # 0.3 10^3/ul (0.3-0.9); MONOCYTES % 5.7 % (0.0-11.0); NEUTROPHIL # 3.7 10^3/ul (1.6-7.5); NEUTROPHILS % 73.6 % (39.0-77.0); PLATELET COUNT 381 10^3/UL (140-415); RED BLOOD COUNT 4.18 10^6/ul (4.20-5.40); WHITE BLOOD COUNT 5.1 10^3/ul (4.8-10.8)
--- NOTE | 2017-01-24 17:13 | PN ---
Date/Time of Note Date/Time of Note DATE: 01/24/17 TIME: 17:11 Assessment/Plan VTE Prophylaxis VTE Prophylaxis Intervention: SCD's Lines/Catheters IV [facility] Type [facility]from [facility] Peripheral IV Urinary Cath still in place: No Assessment/Plan Chief Complaint/Hosp Course Patient started on clear liquid diet, denies any nausea vomiting. 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 Advance diet per surgery. - Possible pneumonia, continue Zosyn. - Hypothyroidism. Continue IV Synthroid. - Diabetes mellitus type 2. Continue Accu-Cheks every 4 hours with NovoLog sliding scale coverage. - Hypertension. Continue Catapres patch. Hydralazine p.r.n. for hypertension. Sequential compression devices for deep venous thrombosis prophylaxis. Further recommendations based on clinical course. Plan of care discussed with Dr. Fonseca. Problems: Exam/Review of Systems Vital Signs Vitals Vital Signs Date Time Temp Pulse Resp B/P Pulse Ox O2 Delivery O2 Flow Rate FiO2 01/24/17 14:09 70 151/70 01/24/17 08:54 98.2 18 97 01/23/17 20:00 Nasal Cannula 01/22/17 20:10 1.5 Intake and Output 01/23/17 01/23/17 01/24/17 15:00 23:00 07:00 Intake Total 550 ml 650 ml 600 ml Output Total 100 ml 50 ml Balance 550 ml 550 ml 550 ml Exam Constitutional: alert Head: normocephalic Neck: supple Respiratory: clear to auscultation Cardiovascular: nl pulses Gastrointestinal: other (Status post surgery), soft Extremities: normal pulses Neurological: nl mental status Results Result Diagram: 01/24/17 1530 01/24/17 0435 Results 24 hrs Laboratory Tests Test 01/23/17 21:33 01/24/17 01:29 01/24/17 04:32 01/24/17 04:35 Bedside Glucose 172 166 White Blood Count 5.3 Red Blood Count 4.02 L Hemoglobin 10.0 L Hematocrit 32.2 L Mean Corpuscular Volume 80.1 L Mean Corpuscular Hemoglobin 24.9 L Mean Corpuscular Hemoglobin Concent 31.1 L Red Cell Distribution Width 17.8 H Platelet Count 372 Mean Platelet Volume 9.9 Neutrophils % 54.8 Lymphocytes % 31.9 Monocytes % 10.6 Eosinophils % 1.5 Basophils % 0.8 Nucleated Red Blood Cells % 0.0 Neutrophils # 2.9 Lymphocytes # 1.7 Monocytes # 0.6 Eosinophils # 0.1 Basophils # 0.0 Nucleated Red Blood Cells # 0.0 Sodium Level 137 Potassium Level 3.8 Chloride Level 104 Carbon Dioxide Level 25 Anion Gap 12 Blood Urea Nitrogen 8 Creatinine 0.40 L Glucose Level 172 Calcium Level 9.0 Test 01/24/17 05:50 01/24/17 09:36 01/24/17 15:01 01/24/17 15:30 Bedside Glucose 173 175 154 White Blood Count 5.1 Red Blood Count 4.18 L Hemoglobin 10.4 L Hematocrit 33.6 L Mean Corpuscular Volume 80.4 L Mean Corpuscular Hemoglobin 24.9 L Mean Corpuscular Hemoglobin Concent 31.0 L Red Cell Distribution Width 18.0 H Platelet Count 381 Mean Platelet Volume 9.4 Neutrophils % 73.6 Lymphocytes % 19.1 Monocytes % 5.7 Eosinophils % 0.4 Basophils % 0.4 Nucleated Red Blood Cells % 0.0 Neutrophils # 3.7 Lymphocytes # 1.0 Monocytes # 0.3 Eosinophils # 0.0 Basophils # 0.0 Nucleated Red Blood Cells # 0.0 Medications Medications Current Medications Diphenhydramine HCl (Benadryl) 25 mg Q4H PRN IV PRURITUS; Start 01/17/17 at 13: 30 Nalbuphine HCl (Nubain) 10 mg Q4H PRN IV PRURITUS; Start 01/17/17 at 13:30 Pantoprazole 40 mg 40 mg DAILY@06 IV Last administered on 01/24/17 05:51; Admin Dose 40 MG; Start 01/18/17 at 06:00 Potassium Chloride/Dextrose/ Sod Cl (D5-1/2ns + KCl 20 Meq) 1,000 ml @ 80 mls/ hr [id number] IV Last administered on 01/24/17 00:55; Admin Dose 80 MLS/HR; Start 01/17/17 at 13:34 Levothyroxine Sodium (Synthroid Iv) 50 mcg DAILY@06 IV Last administered on 05:51; Admin Dose 50 MCG; Start 01/18/17 at 06:00 Insulin Aspart (Novolog Insulin Pen) (Adult SC Insulin - Mild Algorithm)... Q4 SC Last administered on 01/24/17 15:06; Admin Dose 1 UNIT; Start 01/17/17 at 17:30 Miscellaneous Information 1 ea NOTE XX ; Start 01/17/17 at 17:00 Glucose (Glutose) 15 gm Q15M PRN PO DECREASED GLUCOSE; Start 01/17/17 at 17:00 Glucose (Glutose) 22.5 gm Q15M PRN PO DECREASED GLUCOSE; Start 01/17/17 at 17: 00 Dextrose (D50w Syringe) 25 ml Q15M PRN IV DECREASED GLUCOSE; Start 01/17/17 at 17:00 Dextrose (D50w Syringe) 50 ml Q15M PRN IV DECREASED GLUCOSE; Start 01/17/17 at 17:00 Glucagon (Glucagen) 1 mg Q15M PRN IM DECREASED GLUCOSE; Start 01/17/17 at 17:00 Glucose 15 gm 15 gm Q15M PRN BUCCAL DECREASED GLUCOSE; Start 01/17/17 at 17:00 Piperacillin Sod/ Tazobactam Sod (Zosyn 3.375gm/ 100 ml (Pmx)) 100 ml @ 200 mls /hr Q8 IVPB Last administered on 01/24/17 15:41; Admin Dose 200 MLS/HR; Start 01/18/17 at 17:30 Phenol (Cepastat Lozenge) 1 lozenge Q1H PRN MT PAIN Last administered on 19:02; Admin Dose 1 LOZENGE; Start 01/18/17 at 18:00 Naloxone HCl (Narcan) 0.2 mg Q2M PRN IV FOR RESP RATE 8 OR LESS; Start at 21:00 Acetaminophen (Tylenol Supp) 650 mg Q4H PRN [place] ELEVATED TEMPERATURE Last administered on 01/21/17 10:12; Admin Dose 650 MG; Start 01/19/17 at 02:00 Clonidine HCl (Catapres-Tts 1 Patch) 1 patch Q7D TRANSDERM Last administered on 01/21/17 20:26; Admin Dose 1 PATCH; Start 01/21/17 at 19:30 Hydralazine HCl 10 mg 10 mg Q4H PRN IV SBP>170 Last administered on 01/23/17 19:54; Admin Dose 10 MG; Start 01/22/17 at 16:00 Acetaminophen (Ofirmev 1000mg/ 100ml Iv) 100 ml @ 400 mls/hr Q6H PRN IVPB HEADACHE Last administered on 01/23/17 12:44; Admin Dose 400 MLS/HR; Start at 16:00 Hydromorphone HCl (Dilaudid) 1 mg Q4H PRN IV PAIN Last administered on 16:59; Admin Dose 1 MG; Start 01/23/17 at 21:30 GIANNI HAMMER Jan 24, 2017 17:13
--- NOTE | 2017-01-24 17:21 | RADRPT ---
PROCEDURE: Upper GI series. CLINICAL INDICATION: Abdominal pain. Recent partial gastrectomy involving the greater curvature o f the stomach. TECHNIQUE: Barium was administered orally and several spot and overhead radiographs were obtained. A total of 0.2 minutes of fluoroscopy time was used. 17 images were obtained. COMPARISON: No prior study is available for comparison. FINDINGS: There is a nasogastric tube with the tip in the stomach. Anterior skin el are noted. There is moderate gastroesophageal reflux. The stomach and duodenum are normal with no ulceration, mass, or mucosal abnormality. There is no ex travasation of contrast. IMPRESSION: 1. Nasogastric tube tip in the stomach. 2. Anterior skin el. 3. No evidence of extravasation of contrast. RPTAT: QQ .Antione Hammer MD, Date Time Electronically viewed and signed by .Antione Hammer MD, on 01/24/2017 17:21 .R/
[2017-01-24] MEDS: INSULIN ASPART [NOVOLOG] 3 ML PEN SC SCH ×2 (17:56→20:31)
[2017-01-24 19:10] VITALS: BP 171/73; RESP 19
[2017-01-25] MEDS: PANTOPRAZOLE 40 MG INJ IV SCH (05:05)
[2017-01-25] MEDS: PIPER-TAZO 3.375 GM IV (PMX) 100 ML IVPB SCH ×3 (05:05→20:59)
[2017-01-25] MEDS: LEVOTHYROXINE 100 MCG VIAL IV SCH (05:05)
[2017-01-25 05:20] LABS: ADD SCAN DIFF NO
[2017-01-25 05:23] LABS: BASOPHILS % 0.8 % (0.0-2.0); EOSINOPHILS # 0.1 10^3/ul (0.0-0.5); EOSINOPHILS % 1.4 % (0.0-7.0); HEMOGLOBIN 9.6 g/dl (12.0-16.0); LYMPHOCYTES % 38.8 % (15.0-51.0); MEAN CORPUSCULAR HEMOGLOBIN 24.7 pg (29.0-33.0); MEAN CORPUSCULAR VOLUME 79.7 fl (82.0-101.0); MEAN PLATELET VOLUME 9.7 fl (7.4-10.4); MONOCYTE # 0.4 10^3/ul (0.3-0.9); MONOCYTES % 7.8 % (0.0-11.0); NEUTROPHIL # 2.6 10^3/ul (1.6-7.5); PLATELET COUNT 362 10^3/UL (140-415); RED BLOOD COUNT 3.89 10^6/ul (4.20-5.40); WHITE BLOOD COUNT 5.1 10^3/ul (4.8-10.8)
[2017-01-25 05:49] LABS: CALCIUM 8.8 mg/dl (8.4-10.2); CREATININE 0.42 mg/dl (0.44-1.00); POTASSIUM 3.5 mmol/L (3.5-5.1)
[2017-01-25] MEDS: HYDROmorphONE 1 MG/ML SYG IV PRN (07:13)
[2017-01-25] MEDS: INSULIN ASPART [NOVOLOG] 3 ML PEN SC SCH ×4 (08:32→20:57)
[2017-01-25 09:00] VITALS: BP 146/69; RESP 19
--- NOTE | 2017-01-25 13:06 | PN ---
Date/Time of Note Date/Time of Note DATE: 01/25/17 TIME: 13:05 Assessment/Plan VTE Prophylaxis VTE Prophylaxis Intervention: SCD's Lines/Catheters IV C[facility]ter Type (from [facility]): Peripheral IV Urinary Cath still in place: No Assessment/Plan Chief Complaint/Hosp Course Patient tolerates clear liquid diet well, had a bowel movement today, denies any headache. I will resume patient home antihypertensive medication. 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 Advance diet per surgery. - Possible pneumonia, continue Zosyn. Encourage incentive spirometer. - Hypothyroidism. Continue IV Synthroid. - Diabetes mellitus type 2. Continue Accu-Cheks every 4 hours with NovoLog sliding scale coverage. - Hypertension. Continue Catapres patch. Hydralazine p.r.n. for hypertension. Sequential compression devices for deep venous thrombosis prophylaxis. Further recommendations based on clinical course. Plan of care discussed with Dr. Fonseca. Problems: Exam/Review of Systems Vital Signs Vitals Vital Signs Date Time Temp Pulse Resp B/P Pulse Ox O2 Delivery O2 Flow Rate FiO2 01/25/17 09:00 98.3 64 19 146/69 98 01/23/17 20:00 Nasal Cannula 01/22/17 20:10 1.5 Intake and Output 01/24/17 01/24/17 01/25/17 14:59 22:59 06:59 Intake Total 1320 ml 1770 ml Output Total 50 ml 1200 ml Balance 1270 ml 570 ml Exam Constitutional: alert Head: normocephalic Neck: supple Respiratory: clear to auscultation Cardiovascular: nl pulses Gastrointestinal: other (Status post surgery), soft Extremities: normal pulses Neurological: nl mental status Results Result Diagram: 01/25/17 0430 01/25/17 0430 Results 24 hrs Laboratory Tests Test 01/24/17 15:01 01/24/17 15:30 01/24/17 17:53 01/24/17 20:26 Bedside Glucose 154 150 204 White Blood Count 5.1 Red Blood Count 4.18 L Hemoglobin 10.4 L Hematocrit 33.6 L Mean Corpuscular Volume 80.4 L Mean Corpuscular Hemoglobin 24.9 L Mean Corpuscular Hemoglobin Concent 31.0 L Red Cell Distribution Width 18.0 H Platelet Count 381 Mean Platelet Volume 9.4 Neutrophils % 73.6 Lymphocytes % 19.1 Monocytes % 5.7 Eosinophils % 0.4 Basophils % 0.4 Nucleated Red Blood Cells % 0.0 Neutrophils # 3.7 Lymphocytes # 1.0 Monocytes # 0.3 Eosinophils # 0.0 Basophils # 0.0 Nucleated Red Blood Cells # 0.0 Test 01/25/17 01:45 01/25/17 04:30 01/25/17 08:25 Bedside Glucose 183 152 White Blood Count 5.1 Red Blood Count 3.89 L Hemoglobin 9.6 L Hematocrit 31.0 L Mean Corpuscular Volume 79.7 L Mean Corpuscular Hemoglobin 24.7 L Mean Corpuscular Hemoglobin Concent 31.0 L Red Cell Distribution Width 18.0 H Platelet Count 362 Mean Platelet Volume 9.7 Neutrophils % 51.0 Lymphocytes % 38.8 Monocytes % 7.8 Eosinophils % 1.4 Basophils % 0.8 Nucleated Red Blood Cells % 0.0 Neutrophils # 2.6 Lymphocytes # 2.0 Monocytes # 0.4 Eosinophils # 0.1 Basophils # 0.0 Nucleated Red Blood Cells # 0.0 Sodium Level 135 Potassium Level 3.5 Chloride Level 101 Carbon Dioxide Level 26 Anion Gap 12 Blood Urea Nitrogen 11 Creatinine 0.42 L Glucose Level 155 Hemoglobin A1c 7.5 H Calcium Level 8.8 Medications Medications Current Medications Diphenhydramine HCl (Benadryl) 25 mg Q4H PRN IV PRURITUS Last administered on 01:49; Admin Dose 25 MG; Start 01/17/17 at 13:30 Nalbuphine HCl (Nubain) 10 mg Q4H PRN IV PRURITUS; Start 01/17/17 at 13:30 Pantoprazole (Protonix Iv) 40 mg DAILY@06 IV Last administered on 01/25/17 05: 05; Admin Dose 40 MG; Start 01/18/17 at 06:00 Levothyroxine Sodium (Synthroid Iv) 50 mcg DAILY@06 IV Last administered on 05:05; Admin Dose 50 MCG; Start 01/18/17 at 06:00 Miscellaneous Information 1 ea NOTE XX ; Start 01/17/17 at 17:00 Glucose (Glutose) 15 gm Q15M PRN PO DECREASED GLUCOSE; Start 01/17/17 at 17:00 Glucose (Glutose) 22.5 gm Q15M PRN PO DECREASED GLUCOSE; Start 01/17/17 at 17: 00 Dextrose (D50w Syringe) 25 ml Q15M PRN IV DECREASED GLUCOSE; Start 01/17/17 at 17:00 Dextrose (D50w Syringe) 50 ml Q15M PRN IV DECREASED GLUCOSE; Start 01/17/17 at 17:00 Glucagon (Glucagen) 1 mg Q15M PRN IM DECREASED GLUCOSE; Start 01/17/17 at 17:00 Glucose 15 gm 15 gm Q15M PRN BUCCAL DECREASED GLUCOSE; Start 01/17/17 at 17:00 Piperacillin Sod/ Tazobactam Sod (Zosyn 3.375gm/ 100 ml (Pmx)) 100 ml @ 200 mls /hr Q8 IVPB Last administered on 01/25/17 05:05; Admin Dose 200 MLS/HR; Start 01/18/17 at 17:30 Phenol (Cepastat Lozenge) 1 lozenge Q1H PRN MT PAIN Last administered on 19:02; Admin Dose 1 LOZENGE; Start 01/18/17 at 18:00 Naloxone HCl (Narcan) 0.2 mg Q2M PRN IV FOR RESP RATE 8 OR LESS; Start at 21:00 Acetaminophen (Tylenol Supp) 650 mg Q4H PRN [place] ELEVATED TEMPERATURE Last administered on 01/21/17 10:12; Admin Dose 650 MG; Start 01/19/17 at 02:00 Clonidine HCl (Catapres-Tts 1 Patch) 1 patch Q7D TRANSDERM Last administered on 01/21/17 20:26; Admin Dose 1 PATCH; Start 01/21/17 at 19:30 Hydralazine HCl 10 mg 10 mg Q4H PRN IV SBP>170 Last administered on 01/23/17 19:54; Admin Dose 10 MG; Start 01/22/17 at 16:00 Acetaminophen (Ofirmev 1000mg/ 100ml Iv) 100 ml @ 400 mls/hr Q6H PRN IVPB HEADACHE Last administered on 01/23/17 12:44; Admin Dose 400 MLS/HR; Start at 16:00 Hydromorphone HCl (Dilaudid) 1 mg Q4H PRN IV PAIN Last administered on 6/27/ 17at 07:13; Admin Dose 1 MG; Start 01/23/17 at 21:30 GIANNI HAMMER Jan 25, 2017 13:06
[2017-01-25] MEDS: metFORMIN 500 MG TAB PO SCH (17:29)
--- NOTE | 2017-01-25 17:49 | EN ---
Date/Time of Note Date/Time of Note DATE: 01/25/17 TIME: 17:40 Event Note Surgery Surgery Event Note This is dr. Puckett writing progress note on Mary Waqar, S: feels good, feels hungary. has tolerated clears. has had 3 bm today V.S stable, abdomen soft, wound clean. A. Pt has toletated liquids, has had BM. P. to increase diet to Soft diet, if tolerates, will D/C in AM. PERLITA PUCKETT MD Jan 25, 2017 17:48
[2017-01-25] MEDS ORDERED: HYDROCODONE/APAP (5/325) TAB PO PRN (20:00)
[2017-01-25] MEDS: HYDROCODONE/APAP (5/325) TAB PO PRN (20:51)
[2017-01-25] MEDS: LISINOPRIL 10 MG TAB PO SCH (20:59)
[2017-01-25 21:00] VITALS: BP 164/74; PULSE 75
[2017-01-25 21:30] VITALS: BP 140/67; PULSE 73
[2017-01-26] MEDS: HYDROmorphONE 1 MG/ML SYG IV PRN (00:55)
[2017-01-26] MEDS: PIPER-TAZO 3.375 GM IV (PMX) 100 ML IVPB SCH ×2 (05:10→15:08)
[2017-01-26] MEDS: HYDROCODONE/APAP (5/325) TAB PO PRN (05:13)
[2017-01-26] MEDS ORDERED: LEVOTHYROXINE 50 MCG TAB PO SCH (06:00)
[2017-01-26] MEDS ORDERED: PANTOPRAZOLE (EC) 40 MG TAB PO SCH (06:00)
[2017-01-26 08:23] VITALS: BP 143/59; RESP 19
[2017-01-26] MEDS: INSULIN ASPART [NOVOLOG] 3 ML PEN SC SCH ×3 (08:30→18:08)
[2017-01-26] MEDS: LISINOPRIL 10 MG TAB PO SCH (09:19)
[2017-01-26] MEDS: metFORMIN 500 MG TAB PO SCH ×2 (09:19→18:07)
[2017-01-26] MEDS ORDERED: HYDR-3498 PO (16:00)
[2017-01-26] MEDS ORDERED: LISI20TA11 PO (16:00)
[2017-01-26] MEDS ORDERED: ACETAMINOPHEN 325 MG TAB PO PRN (17:00)
--- NOTE | 2017-01-26 18:53 | DS ---
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 - Possible pneumonia, s/p Zosyn. - Hypothyroidism. - Diabetes mellitus type 2. - Hypertension. Patient Condition: Good Hx of Present Illness The patient is a 66-year-old female who was undergoing evaluation of abdominal pain and was diagnosed with gastric mass. Subsequently, the patient had undergo fine needle aspiration biopsy which came back positive for gastrointestinal stromal tumor. The patient was evaluated by Dr. Patricia in general surgery consultation and was brought to the hospital and underwent partial gastrectomy. Postoperative, the patient experienced moderate pain and was admitted for further evaluation and management. Hospital Course Patient tolerates clear liquid diet well, had a bowel movement today, denies any headache. I will resume patient home antihypertensive medication. ASSESSMENT AND PLAN: Sequential compression devices for deep venous thrombosis prophylaxis. Further recommendations based on clinical course. Plan of care discussed with Dr. Fonseca. Home Meds Active Scripts Lisinopril* (Lisinopril*) 20 Mg Tablet, 20 MG PO BID for 30 Days, #30 TAB Prov:GIANNI HAMMER 01/26/17 Hydrocodone Bit-Acetaminophen (Hydrocodone Bit-APAP) 5-325MG Tablet, 1 TAB PO Q4H Y for mild to mod pain, #30 TAB Prov:GIANNI HAMMER 01/26/17 Reported Medications Nitrofurantoin Macrocrystal* (Macrodantin*) 50 Mg Cap, 50 MG PO DAILY, CAP 01/17/17 Icosapent Ethyl (VASCEPA) 1 Gm Capsule, 2 GM PO BID, CAP 01/17/17 Lisinopril* (Lisinopril*) 10 Mg Tablet, 10 MG PO BID, #30 TAB 01/17/17 Metformin Hcl* (Metformin Hcl*) 1,000 Mg Tablet, 1000 MG PO WITH BREAKFAST DINNE , #30 TAB 01/17/17 Omeprazole* (Omeprazole*) 20 Mg Capsule.dr, 20 MG PO DAILY, #30 CAP 01/17/17 Levothyroxine Sodium* (Levothyroxine Sodium*) 100 Mcg Tablet, 100 MCG PO BEFORE BREAKFAST, #30 TAB 01/17/17 Glipizide* (Glipizide ER*) 2.5 Mg Tab.er.24, 2.5 MG PO DAILY, TAB 01/17/17 Loratadine* (Loratadine*) 10 Mg Tablet, 10 MG PO DAILY, #30 TAB 01/17/17 Follow-up Plan Follow-up with Dr. Patricia postoperative appointment in 1 2 weeks Primary Care Provider Not On Staff Doctor Time spent on discharge: < 30 minutes Pending Labs Laboratory Tests Test 01/25/17 20:50 01/25/17 21:46 01/26/17 02:25 01/26/17 08:37 Bedside Glucose 186mg/dL (70-220) 163mg/dL (70-220) 122mg/dL (70-220) 131mg/dL (70-220) Test 01/26/17 11:54 01/26/17 18:03 Bedside Glucose 151mg/dL (70-220) 151mg/dL (70-220) GIANNI HAMMER Jan 26, 2017 18:52
[2017-01-26 20:18] VITALS: BP 145/63; RESP 18
== END 2017-01-26 20:20 | disposition home or self-care (01) | DRG 981 ==
LOC: REC 09:15 → MS1 15:05
PROVIDERS: ADMIT Surgery Surgical Oncology; ATTEND Surgery Surgical Oncology
PROC: 0DB60ZZ Excision of Stomach, Open Approach (ICD-10-PCS; principal; 2017-01-17 12:00)
DX: C49.A2 Gastrointestinal stromal tumor of stomach (principal); J18.9 Pneumonia, unspecified organism; E11.8 Type 2 diabetes mellitus with unspecified complications; I10 Essential (primary) hypertension; E03.9 Hypothyroidism, unspecified
CPT/HCPCS: 71010; 74240; 80048; 80053; 82962; 83036; 84484; 85025; 85610; 85730; 87040; 87086; 88309; 88341; 88342; 93005; 97116; 97161; 97530; J1940; C9113; J0131; J0295; J0360; J0690; J1100; J1170; J1200; J1815; J2250; J2270; J2274; J2370; J2405; J2543; J2710; J2765; J2795; J3010; J3480; J7030

== ENCOUNTER 2017-02-10 13:14 | Emergency (ER) | payer MEDICARE, OTHER ==
[~2017-02-10] VITALS: Ht 157.5 cm; Wt 76.5 kg
[~2017-02-10 13:14] MED LIST changes: -AMPICILLIN/SULB 3 GM/NS (PMX) 100 ML IVPB SCH; +GLIP2.5T3 PO; +HYDR-3498 PO; +ICOS1CAP PO; +LEVO100T87 PO; -LEVOTHYROXINE; +LISI20TA11 PO; -LISINOPRIL; +METF1000 PO; -METFORMIN; -NAPROXEN; +OMEP20CA16 PO; -SOD CHLORIDE 0.9% 1,000 ML IV SCH
[2017-02-10 13:38] VITALS: Ht 157.5 cm; Wt 76.5 kg
[2017-02-10] MEDS ORDERED: SULF1TAB31 PO (14:52)
[2017-02-10] MEDS ORDERED: CEPH500C PO (14:52)
[2017-02-10] MEDS ORDERED: DOCU-144 PO (14:52)
[2017-02-10] MEDS ORDERED: TRAM-40 PO (14:52)
--- NOTE | 2017-02-10 14:57 | ERD ---
ER Documentation Chief Complaint Date/Time DATE: 02/10/17 TIME: 14:55 Chief Complaint Complains of a pain at the post op site HPI 66-year-old female presents with multiple complete complaints. She had a stromal tumor removed from her stomach approximately 3-4 weeks ago. She denies fevers, vomiting and is having bowel movements although somewhat constipated. She denies blood. Her additional complaint is some redness on her right chest wall for the last 3 days. She denies any fevers. She has no bleeding or discharge from the wound. Her surgeon was Dr. Patricia. ROS All systems reviewed and are negative except as per history of present illness. Medications Home Meds Active Scripts Docusate Sodium* (Colace*) 100 Mg Capsule, 100 MG PO BID, #30 CAP Prov:FÁTIMA GAMINO MD 02/10/17 Tramadol Hcl* (Ultram*) 50 Mg Tablet, 50 MG PO Q6H Y for PAIN, #20 TAB Prov:FÁTIMA GAMINO MD 02/10/17 Cephalexin* (Cephalexin*) 500 Mg Capsule, 500 MG PO Q6 for 7 Days, #28 CAP Prov:FÁTIMA GAMINO MD 02/10/17 Sulfamethoxazole/Trimethoprim* (Bactrim Ds* Tablet) 1 Each Tablet, 1 TAB PO BID for 7 Days, #14 TAB Prov:FÁTIMA GAMINO MD 02/10/17 Lisinopril* (Lisinopril*) 20 Mg Tablet, 20 MG PO BID for 30 Days, #30 TAB Prov:GIANNI HAMMER 01/26/17 Hydrocodone Bit-Acetaminophen (Hydrocodone Bit-APAP) 5-325MG Tablet, 1 TAB PO Q4H Y for mild to mod pain, #30 TAB Prov:GIANNI HAMMER 01/26/17 Reported Medications Icosapent Ethyl (VASCEPA) 1 Gm Capsule, 2 GM PO BID, CAP 01/17/17 Metformin Hcl* (Metformin Hcl*) 1,000 Mg Tablet, 1000 MG PO WITH BREAKFAST DINNE , #30 TAB 01/17/17 Omeprazole* (Omeprazole*) 20 Mg Capsule., 20 MG PO DAILY, #30 CAP 01/17/17 Levothyroxine Sodium* (Levothyroxine Sodium*) 100 Mcg Tablet, 100 MCG PO BEFORE BREAKFAST, #30 TAB 01/17/17 Glipizide* (Glipizide ER*) 2.5 Mg Tab.er.24, 2.5 MG PO DAILY, TAB 01/17/17 Allergies Allergies: Coded Allergies: trazodone (Verified Allergy, Intermediate, itchy, 02/10/17) PMhx/Soc History of Surgery: Yes (APENDIX,THYROID, CSECTION X2) Anesthesia Reaction: No Hx Neurological Disorder: No Hx Respiratory Disorders: No Hx Cardiac Disorders: Yes (HTN) Hx Psychiatric Problems: No Hx Miscellaneous Medical Probl: Yes (HTN, DM, hypothyroidsm. ) Hx Alcohol Use: No Hx Substance Use: No Hx Tobacco Use: No Smoking Status: Never smoker Physical Exam Vitals Vital Signs Date Time Temp Pulse Resp B/P Pulse Ox O2 Delivery O2 Flow Rate FiO2 02/10/17 13:38 99.3 95 20 132/64 98 Physical Exam Const: [] Alert, [id number]. Head: Atraumatic Eyes: Normal Conjunctiva ENT: Normal External Ears, Nose and Mouth. Neck: Full range of motion..~ No meningismus. Resp: Clear to auscultation bilaterally Cardio: Regular rate and rhythm, no murmurs Abd: Soft, non tender, non distended. Normal bowel sounds. Well-healed midline abdominal incision without erythema, discharge or bleeding. No rebound. Skin: No petechiae or rashes. There is approximately 3 x 4 cm area of erythema and induration with a small pustule on the right lateral chest wall. There is no appreciable fluctuance. Back: No midline or flank tenderness Ext: No cyanosis, or edema Neur: Awake and alert Psych: Normal Mood and Affect Results 24 hrs Current Medications Medications (Trade) Dose Ordered Sig/Shania Route PRN Reason Start Time Stop Time Status Last Admin Dose Admin Trimethoprim/ Sulfamethoxazole (Bactrim (Ds)) 1 tab ONCE ONCE PO 02/10/17 15:00 02/10/17 15:01 02/10/17 14:42 Cephalexin (Keflex) 500 mg ONCE ONCE PO 02/10/17 15:00 02/10/17 15:01 02/10/17 14:42 Tramadol HCl (Ultram) 50 mg ONCE ONCE PO 02/10/17 15:00 02/10/17 15:01 02/10/17 14:42 Procedures/MDM This patient presents with postoperative pain from a stromal tumor removal from her stomach with stomach.. Patient has no fevers, vomiting, is having bowel movements. There is no signs of infection on the wound and no deep abdominal tenderness or rebound. No current signs or symptoms to suggest postoperative infection. Her right chest wall lesion is a clinical appearance of cellulitis likely MRSA. She was given Bactrim and Keflex here as well as tramadol and will be treated with Bactrim and Keflex and Tylenol, instructions for warm compresses and instructions for wound check in 2-3 days for possible incision and drainage. She shows return sooner for fevers, vomiting, worsening abdominal pain, blood, new worsening symptoms as directed after instructions or with her surgeon as directed. Departure Diagnosis: Primary Impression: Cellulitis Site of cellulitis: trunk Site of cellulitis of trunk: chest wall Qualified Code: L03.313 - Cellulitis of chest wall Additional Impression: Post-op pain Condition: Stable Patient Instructions: Cellulitis, Post Op Wound Check, Pain Additional Instructions: CHEQUE EN 2-3 JERONIMO PARA CHEQUE PARA ABSCESSO . PONE AGUA TIBIA. FÁTIMA GAMINO MD Feb 10, 2017 14:57
[2017-02-10] MEDS ORDERED: traMADol 50 MG TAB PO ONE (15:00)
[2017-02-10] MEDS ORDERED: CEPHALEXIN 500 MG CAP PO ONE (15:00)
[2017-02-10] MEDS ORDERED: TRIMETHOPRIM/SULFAMETHOX (DS) TAB PO ONE (15:00)
[2017-02-10 15:37] VITALS: BP 145/68; PULSE 89; RESP 17; TEMP 98.5
== END 2017-02-10 15:40 | disposition home or self-care (01) ==
LOC: FTE 13:14
DX: L03.313 Cellulitis of chest wall (principal); E11.9 Type 2 diabetes mellitus without complications; I10 Essential (primary) hypertension; E03.9 Hypothyroidism, unspecified; Z79.84 Long term (current) use of oral hypoglycemic drugs
CPT/HCPCS: 99284

== ENCOUNTER 2017-03-23 12:54 | Emergency (ER) | payer MEDICARE, OTHER ==
[~2017-03-23] VITALS: Ht 160 cm; Wt 77.0 kg
[~2017-03-23 12:54] MED LIST changes: +CEPH500C PO; +DOCU-144 PO; +SULF1TAB31 PO; +TRAM-40 PO
[2017-03-23 13:00] VITALS: Ht 160 cm; Wt 77.0 kg
[2017-03-23 15:44] LABS: BASOPHILS % 0.5 % (0.0-2.0); EOSINOPHILS # 0.1 10^3/ul (0.0-0.5); EOSINOPHILS % 1.1 % (0.0-7.0); HEMATOCRIT 30.7 % (37.0-47.0); HEMOGLOBIN 9.6 g/dl (12.0-16.0); LYMPHOCYTES # 2.9 10^3/ul (0.8-2.9); LYMPHOCYTES % 53.3 % (15.0-51.0); MEAN CORPUSCULAR HEMOGLOBIN 24.6 pg (29.0-33.0); MEAN CORPUSCULAR HGB CONC 31.3 g/dl (32.0-37.0); MEAN CORPUSCULAR VOLUME 78.5 fl (82.0-101.0); MEAN PLATELET VOLUME 10.1 fl (7.4-10.4); MONOCYTE # 0.5 10^3/ul (0.3-0.9); MONOCYTES % 9.8 % (0.0-11.0); NEUTROPHILS % 34.8 % (39.0-77.0); PLATELET COUNT 362 10^3/UL (140-415); RED BLOOD COUNT 3.91 10^6/ul (4.20-5.40); RED CELL DISTRIBUTION WIDTH 17.7 % (11.5-14.5); WHITE BLOOD COUNT 5.5 10^3/ul (4.8-10.8)
[2017-03-23 16:08] LABS: ALBUMIN 4.4 g/dl (3.3-4.9); ALBUMIN/GLOBULIN RATIO 1.29; BILIRUBIN,INDIRECT 0.3 mg/dl (0-1.1); BILIRUBIN,TOTAL 0.3 mg/dl (0.2-1.3); CREATININE 0.43 mg/dl (0.44-1.00); TOTAL PROTEIN 7.8 g/dl (6.1-8.1)
[2017-03-23 16:09] LABS: CALCIUM 9.4 mg/dl (8.4-10.2)
[2017-03-23 17:09] VITALS: BP 146/67; PULSE 67; RESP 20
--- NOTE | 2017-03-23 17:59 | RADRPT ---
AMENDMENT: 04/02/2017 10:47:47 PM Marcela Connor M.D One or more of the following dose reduction techniques were used: - Automated exposure control. - Adjustment of the mA and/or kV according to patient size. - Use of iterative reconstruction technique. PROCEDURE: CT ABDOMEN AND PELVIS WITHOUT CONTRAST: CLINICAL INDICATION: 66 years of age, female , abdominal pain. COMPARISON: None available. TECHNIQUE: CT of the abdomen and pelvis was performed without intravenous contrast. Oral contrast wa s not administered prior to the examination. Coronal and sagittal reformatted images were obtained from the axial source images. Images were revi ewed on a high-resolution PACS workstation. Dose information: Based on a 32 cm phantom, the estimated radiation dose (CTDI vol mGy) for each ser ies in this exam is 15.1. The estimated cumulative dose (DLP mGy-cm) is 882. FINDINGS: In the absence of intravenous contrast, the study constitutes a limited assessment of the solid orga ns, bowel and vessels. LUNG BASES: Calcified pleural plaques over left diaphragm. Coronary artery calcification. Left atr ial enlargement and aortic valve calcification. ABDOMEN/PELVIS: Liver: Calcified granuloma left hepatic lobe. Mild hepatomegaly measuring 19 cm in length. Normal density. Gallbladder: Normal noncontrast appearance. Bile ducts: No intrahepatic or extrahepatic biliary duct dilatation. Spleen: Calcified granulomas. Negative for splenomegaly. Spleen measures 10 cm in length. Pancreas: Normal noncontrast appearance. Adrenal glands: Normal noncontrast appearance. Kidneys and ureters: Sub centimeter hypodensity posterior right kidney is too small to characterize. Otherwise normal. Negative for urinary calculi or hydronephrosis. Aorta and IVC: Normal noncontrast appearance. Lymph nodes: Normal noncontrast appearance. Gastrointestinal tract: Colonic diverticulosis greatest in the descending and sigmoid colon without diverticulitis. Surgical el along greater curvature of stomach likely from partial gastrectomy. Bowel loops are decompressed. Appendix: Not visualized Bladder: Normal noncontrast appearance. Pelvic Organs: The uterus and adnexa are unremarkable Peritoneal cavity: No free fluid or free intraperitoneal air. Abdominal wall: Small fat containing bilateral inguinal hernias. Postsurgical changes anterior abdo sincere wall. Injection granulomas bilateral infarcts. BONES: Musculoskeletal: Mild degenerative changes in spine No suspicious bone lesions. IMPRESSION: Colonic diverticulosis without evidence of diverticulitis. Appendix is not identified. No cause for acute abdominal pain is evident. RPTAT: HCTS Rhoda Connor, Physician Date Time Electronically viewed and signed by Rhoda Connor, Physician on 04/02/2017 22:48 CS/
[2017-03-23 18:08] LABS: URINE BLOOD (Dip) POC Negative (NEGATIVE)
[2017-03-23 18:11] LABS: URINE BLOOD (Dip) POC Trace-intact (NEGATIVE)
[2017-03-23] MEDS ORDERED: IBUP-1542 PO (18:11)
--- NOTE | 2017-03-23 18:49 | ERA ---
ER Documentation Chief Complaint Date/Time DATE: 03/23/17 Chief Complaint abd pain x 2 weeks, had stomach tumor removed in December The patient is a 66-year-old female, presenting to the ER because of abdominal discomfort for the last 2 weeks intermittently. She denies fever, chills, neck pain, chest pain, vomiting, dysuria, diarrhea, constipation. She does not smoke nor drink. 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 Medications Home Meds Active Scripts Ibuprofen* (Motrin*) 600 Mg Tab, 600 MG PO Q6, #30 TAB Prov:AMANDA POSEY MD 03/23/17 Docusate Sodium* (Colace*) 100 Mg Capsule, 100 MG PO BID, #30 CAP Prov:FÁTIMA GAMINO MD 02/10/17 Tramadol Hcl* (Ultram*) 50 Mg Tablet, 50 MG PO Q6H Y for PAIN, #20 TAB Prov:FÁTIMA GAMINO MD 02/10/17 Lisinopril* (Lisinopril*) 20 Mg Tablet, 20 MG PO BID for 30 Days, #30 TAB Prov:GIANNI HAMMER 01/26/17 Hydrocodone Bit-Acetaminophen (Hydrocodone Bit-APAP) 5-325MG Tablet, 1 TAB PO Q4H Y for mild to mod pain, #30 TAB Prov:GIANNI HAMMER 01/26/17 Reported Medications Icosapent Ethyl (VASCEPA) 1 Gm Capsule, 2 GM PO BID, CAP 01/17/17 Metformin Hcl* (Metformin Hcl*) 1,000 Mg Tablet, 1000 MG PO WITH BREAKFAST DINNE , #30 TAB 01/17/17 Omeprazole* (Omeprazole*) 20 Mg Capsule.dr, 20 MG PO DAILY, #30 CAP 01/17/17 Levothyroxine Sodium* (Levothyroxine Sodium*) 100 Mcg Tablet, 100 MCG PO BEFORE BREAKFAST, #30 TAB 01/17/17 Glipizide* (Glipizide ER*) 2.5 Mg Tab.er.24, 2.5 MG PO DAILY, TAB 01/17/17 Discontinued Scripts Cephalexin* (Cephalexin*) 500 Mg Capsule, 500 MG PO Q6 for 7 Days, #28 CAP Prov:FÁTIMA GAMINO MD 02/10/17 Sulfamethoxazole/Trimethoprim* (Bactrim Ds* Tablet) 1 Each Tablet, 1 TAB PO BID for 7 Days, #14 TAB Prov:FÁTIMA GAMINO MD 02/10/17 Allergies Allergies: Coded Allergies: trazodone (Verified Allergy, Intermediate, itchy, 03/23/17) PMhx/Soc History of Surgery: Yes (APENDIX,THYROID, CSECTION X2) Anesthesia Reaction: No Hx Neurological Disorder: No Hx Respiratory Disorders: No Hx Cardiac Disorders: Yes (HTN) Hx Psychiatric Problems: No Hx Miscellaneous Medical Probl: Yes (HTN, DM, hypothyroidsm. ) Hx Alcohol Use: No Hx Substance Use: No Hx Tobacco Use: No Smoking Status: Never smoker Physical Exam Vitals Vital Signs Date Time Temp Pulse Resp B/P Pulse Ox O2 Delivery O2 Flow Rate FiO2 03/23/17 17:09 67 20 146/67 99 Room Air 03/23/17 13:00 98.3 78 18 173/74 99 Physical Exam Const: No acute distress. Head: Atraumatic. Eyes: Normal Conjunctiva. ENT: Normal External Ears, Nose and Mouth. Neck: Full range of motion. No meningismus. Resp: Clear to auscultation bilaterally. Cardio: Regular rate and rhythm. Abd: Soft, non distended, normal bowel sounds, mild and vague diffuse abdominal tenderness, no rigidity, rebound, CVA tenderness Skin: No petechiae or rashes. Back: No midline or flank tenderness. Ext: No cyanosis, or edema. Neur: Awake and alert. No focal deficit Psych: Normal Mood and Affect. Result Diagram: 03/23/17 1525 03/23/17 1525 Results 24 hrs Laboratory Tests Test 03/23/17 15:25 03/23/17 18:14 03/23/17 18:17 White Blood Count 5.510^3/ul Red Blood Count 3.9110^6/ul Hemoglobin 9.6g/dl Hematocrit 30.7% Mean Corpuscular Volume 78.5fl Mean Corpuscular Hemoglobin 24.6pg Mean Corpuscular Hemoglobin Concent 31.3g/dl Red Cell Distribution Width 17.7% Platelet Count 64628^3/UL Mean Platelet Volume 10.1fl Neutrophils % 34.8% Lymphocytes % 53.3% Monocytes % 9.8% Eosinophils % 1.1% Basophils % 0.5% Nucleated Red Blood Cells % 0.0/100WBC Neutrophils # (Manual) 210^3/ul Lymphocytes # 2.910^3/ul Monocytes # 0.510^3/ul Eosinophils # 0.110^3/ul Basophils # 0.010^3/ul Nucleated Red Blood Cells # 0.010^3/ul Sodium Level 137mmol/L Potassium Level 4.0mmol/L Chloride Level 101mmol/L Carbon Dioxide Level 26mmol/L Anion Gap 14 Blood Urea Nitrogen 17mg/dl Creatinine 0.43mg/dl Glucose Level 186mg/dl Calcium Level 9.4mg/dl Total Bilirubin 0.3mg/dl Direct Bilirubin 0.00mg/dl Indirect Bilirubin 0.3mg/dl Aspartate Amino Transf (AST/SGOT) 122IU/L Alanine Aminotransferase (ALT/SGPT) 167IU/L Alkaline Phosphatase 103IU/L Total Protein 7.8g/dl Albumin 4.4g/dl Globulin 3.40g/dl Albumin/Globulin Ratio 1.29 Lipase 103U/L Bedside Urine pH (LAB) 6.0 6.0 Bedside Urine Protein (LAB) Negative Negative Bedside Urine Glucose (UA) 0.1% 0.1% Bedside Urine Ketones (LAB) Negative Negative Bedside Urine Blood Negative Trace-intact Bedside Urine Nitrite (LAB) Negative Negative Bedside Urine Leukocyte Esterase (L Negative Negative Procedures/MDM [place] [id number] Radiology Main Line: [phone] DIAGNOSTIC IMAGING REPORT Patient: MANDEEP LOPEZ : 1950 Age: 66 Sex: F MR #: [id number] DOS: 03/23/17 [facility] Ordering MD: AMANDA PSOEY MD Location: E/R Room/Bed: PROCEDURE: CT ABDOMEN AND PELVIS WITHOUT CONTRAST: CLINICAL INDICATION: 66 years of age, female , abdominal pain. COMPARISON: None available. TECHNIQUE: CT of the abdomen and pelvis was performed without intravenous contrast. Oral contrast was not administered prior to the examination. Coronal and sagittal reformatted images were obtained from the axial source images. Images were reviewed on a high-resolution PACS workstation. Dose information: Based on a 32 cm phantom, the estimated radiation dose (CTDI vol mGy) for each series in this exam is 15.1. The estimated cumulative dose ( DLP mGy-cm) is 882. FINDINGS: In the absence of intravenous contrast, the study constitutes a limited assessment of the solid organs, bowel and vessels. LUNG BASES: Calcified pleural plaques over left diaphragm. Coronary artery calcification. Left atrial enlargement and aortic valve calcification. ABDOMEN/PELVIS: Liver: Calcified granuloma left hepatic lobe. Mild hepatomegaly measuring 19 cm in length. Normal density. Gallbladder: Normal noncontrast appearance. Bile ducts: No intrahepatic or extrahepatic biliary duct dilatation. Spleen: Calcified granulomas. Negative for splenomegaly. Spleen measures 10 cm in length. Pancreas: Normal noncontrast appearance. Adrenal glands: Normal noncontrast appearance. Kidneys and ureters: Sub centimeter hypodensity posterior right kidney is too small to characterize. Otherwise normal. Negative for urinary calculi or hydronephrosis. Aorta and IVC: Normal noncontrast appearance. Lymph nodes: Normal noncontrast appearance. Gastrointestinal tract: Colonic diverticulosis greatest in the descending and sigmoid colon without diverticulitis. Surgical el along greater curvature of stomach likely from partial gastrectomy. Bowel loops are decompressed. Appendix: Not visualized Bladder: Normal noncontrast appearance. Pelvic Organs: The uterus and adnexa are unremarkable Peritoneal cavity: No free fluid or free intraperitoneal air. Abdominal wall: Small fat containing bilateral inguinal hernias. Postsurgical changes anterior abdominal wall. Injection granulomas bilateral infarcts. BONES: Musculoskeletal: Mild degenerative changes in spine No suspicious bone lesions. IMPRESSION: Colonic diverticulosis without evidence of diverticulitis. Appendix is not identified. No cause for acute abdominal pain is evident. RPTAT: HCTS Physician Shilpa Date Time Electronically viewed and signed by Physician Shilpa on 03/23/2017 17: 59 CS/ CC: AMANDA POSEY MD MEDICAL MAKING DECISION: The patient is a 66-year-old female, presenting with acute abdominal pain of unclear etiology. She is stable for outpatient follow- up The differential diagnoses considered include but are not limited to adhesion, cholelithiasis, cholecystitis, cystitis, pancreatitis, hepatitis, gastritis, peptic ulcer disease, gastric ulcer, diverticulitis, cholangitis, choledocholithiasis, partial small bowel obstruction. Departure Diagnosis: Primary Impression: Abdominal pain Additional Impressions: Anemia Transaminitis Condition: Good Patient Instructions: Abdominal Pain Referrals: DOCTOR,NOT ON STAFF (PCP) Additional Instructions: Call your primary care doctor TOMORROW for an appointment during the next 1-2 days.See the doctor sooner or return here if your condition worsens before your appointment time. She was discharged with AMANDA Cherry MD Mar 23, 2017 18:49
== END 2017-03-23 18:21 | disposition home or self-care (01) ==
LOC: E/R 12:54
DX: R10.84 Generalized abdominal pain (principal); I10 Essential (primary) hypertension; E11.9 Type 2 diabetes mellitus without complications; E03.9 Hypothyroidism, unspecified; Z79.84 Long term (current) use of oral hypoglycemic drugs
CPT/HCPCS: 36415; 74176; 80053; 81003; 83690; 85025

== ENCOUNTER 2017-03-28 16:49 | Emergency (ER) | payer MEDICARE, OTHER ==
[~2017-03-28] VITALS: Ht 160 cm; Wt 78.0 kg
[~2017-03-28 16:49] MED LIST changes: -CEPH500C PO; +IBUP-1542 PO; -SULF1TAB31 PO
[2017-03-28 16:52] VITALS: Ht 160 cm; Wt 78.0 kg
== END 2017-03-28 19:10 | disposition left against medical advice (07) ==
LOC: E/R 16:49
DX: Z53.21 Procedure and treatment not carried out due to patient leaving prior to being seen by health care provider (principal)